=== PATIENT | female | born 1965 | race Caucasian/White ===

== ENCOUNTER → 2019-07-11 15:13 | Outpatient (BNVA) | payer MEDICAID, SELFPAY | PROVIDERS: Family Provider Nurse Practitioner Family; PCP Nurse Practitioner Family; Visit Provider Otolaryngology | DX: H60.501 Unspecified acute noninfective otitis externa, right ear (principal); H90.11 Conductive hearing loss, unilateral, right ear, with unrestricted hearing on the contralateral side; M27.0 Developmental disorders of jaws; K13.70 Unspecified lesions of oral mucosa | CPT/HCPCS: 99213; 99214 ==

== ENCOUNTER → 2019-10-21 14:00 | Outpatient (BNVA) | payer MEDICAID, SELFPAY | PROVIDERS: Family Provider Nurse Practitioner Family; PCP Nurse Practitioner Family; Visit Provider Nurse Practitioner Family | DX: E55.9 Vitamin D deficiency, unspecified (principal); R53.82 Chronic fatigue, unspecified; M62.830 Muscle spasm of back | CPT/HCPCS: 80053; 82306; 82728; 83540; 83550; 84439; 84443; 85025 ==

== ENCOUNTER → 2019-11-11 14:56 | Outpatient (BNVA) | payer MEDICAID, SELFPAY | PROVIDERS: Family Provider Nurse Practitioner Family; PCP Nurse Practitioner Family; Visit Provider Nurse Practitioner Family | DX: R10.9 Unspecified abdominal pain (principal); Z68.39 Body mass index [BMI] 39.0-39.9, adult | CPT/HCPCS: 74018; 81000; 82150; 83690 ==

== ENCOUNTER 2020-03-18 13:35 | Emergency (ER) | payer MEDICAID, SELFPAY ==
--- NOTE | 2020-03-18 13:39 | XR_ITS ---
WS: [id number] XR chest 1V portable [id number] REASON FOR EXAM: cp FINDINGS: The heart and mediastinum are within normal limits. Calcified granulomatous disease in both hemithoraces. No active pulmonary parenchymal or pleural disease. The bony thorax is intact. XR/XR chest 1V portable [id number] IMPRESSION: No acute chest abnormality.
--- NOTE | 2020-03-18 13:39 | ECG_ITS ---
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 Measurements Intervals [place] Rate: 101 P: 44 MT: 123 QRS: -23 QRSD: 98 T: 7 QT: 347 QTc: 452 Interpretive Statements SINUS TACHYCARDIA POSSIBLE LEFT ATRIAL ENLARGEMENT [-0.1mV P WAVE IN V1/V2] BORDERLINE LEFT AXIS DEVIATION [QRS AXIS < -20] POSSIBLE LEFT VENTRICULAR HYPERTROPHY [VOLTAGE CRITERIA PLUS LAE OR QRS WIDENING] MINIMAL ST DEPRESSION [0.025+ mV ST DEPRESSION] Compared to ECG 02/10/2019 18:55:43 ST (T wave) deviation now present Sinus rhythm no longer present Electronically Signed On 03-18-2020 21:34:58 CDT by Stevo Hua M.D. [id number] f
[2020-03-18 13:46] VITALS: BP 169/95; PULSE 96; RESP 14; TEMP 36.8; O2SAT 98; BMI 39.6
[2020-03-18 14:33] LABS: Basophils # 0.1 10^3/uL (0.0-0.1); Basophils % 0.9 %; Eosinophils # 0.1 10^3/uL (0.0-0.8); Eosinophils % 1.4 %; Hematocrit 45.2 % (37.0-47.0); Hemoglobin 14.2 g/dL (11.5-15.3); Lymphocytes # 2.3 10^3/uL (0.8-4.8); Lymphocytes % 26.4 %; Mean Corpuscular HGB Conc 31.4 g/dL (30.0-36.0); Mean Corpuscular Hemoglobin 27.5 pg (28.0-34.0); Mean Corpuscular Volume 87.6 fL (81-99); Mean Platelet Volume 10.8 fL (7.4-10.4); Monocytes # 0.7 10^3/uL (0.2-0.9); Monocytes % 7.9 %; Neutrophils # 5.52 10^3/uL (1.8-7.7); Neutrophils % 62.7 %; Nucleated Red Blood Cells % 0 %; Platelet Count 251 10^3/cmm (130-400); Red Blood Count 5.16 10^6/uL (4.1-5.3); Red Cell Distribution Width 13.7 % (12.1-15.1); White Blood Count 8.8 10^3/uL (4.0-10.0)
[2020-03-18 15:02] LABS: Alanine Aminotransferase 22 U/L (0-33); Albumin Level 4.3 g/dL (3.5-5.2); Alkaline Phosphatase 101 IU/L (35-105); Anion Gap 14.2 (5-19); Aspartate Amino Transferase 18 U/L (0-32); Blood Urea Nitrogen 18 mg/dL (6-20); Calcium 9.6 mg/dL (8.5-10.5); Carbon Dioxide 25 mmol/L (22-29); Chloride 107 mmol/L (98-107); Globulin 2.5 g/dL (1.3-4.6); Glomerular Filtration Rate 65.2 mL/min (90-130); Glucose 111 mg/dL (65-115); Osmolality Calculated 297 mOsm/kg (285-295); Potassium 4.2 mmol/L (3.5-5.1); Sodium 142 mmol/L (136-145); Total Bilirubin 0.6 mg/dL (0.15-1.2); Total Protein 6.8 g/dL (6.6-8.7)
[2020-03-18 15:05] LABS: Troponin(5th) Baseline 6 ng/L (0-10)
--- NOTE | 2020-03-18 15:39 | ECG_ITS ---
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 Measurements Intervals [place] Rate: 80 P: 27 NM: 126 QRS: -23 QRSD: 112 T: 11 QT: 374 QTc: 433 Interpretive Statements SINUS RHYTHM WITH SINUS ARRHYTHMIA BORDERLINE LEFT AXIS DEVIATION [QRS AXIS < -20] MODERATE INTRAVENTRICULAR CONDUCTION DELAY [110+ ms QRS DURATION] VOLTAGE CRITERIA FOR LVH [MEETS CRITERIA IN ONE OF: R(aVL), S(V1), R(V5), R(V5/V6)+S(V1)] Compared to ECG 03/18/2020 13:36:48 Intraventricular conduction delay now present Sinus tachycardia no longer present ST (T wave) deviation no longer present Electronically Signed On 03-19-2020 21:41:39 CDT by Stevo Hua M.D. [id number]
--- NOTE | 2020-03-18 16:49 | W.ED.CHESTPA ---
HPI - Chest Pain General: Chief Complaint: Chest Pain Stated Complaint: Chest Pain Time Seen by Provider: 03/18/20 16:42 Source: patient Mode of arrival: ambulatory Limitations: no limitations History of Present Illness: HPI narrative: 55-year-old female who states she has been having chest pain over the last 2 days. She states that her pain is been sharp in nature. Patient seen by PCP today who thought may be muscular but she went to get checked out further. Denies any shortness of breath denies any nausea vomiting. She denies any worsening or improving factors. Patient is resting comfortably here. Associated symptoms: Deny abdominal pain, dyspnea, fever(s), nausea or vomiting Review of Systems Const: Denies: fever(s), chills, body aches or change in appetite Eyes: Denies: blurry vision or eye discomfort ENMT: Denies: throat pain or dental pain Card: Reports: chest pain Resp: Denies: dyspnea GI: Denies: abdominal pain, nausea, vomiting or diarrhea : Denies: dysuria Musc: Denies: neck pain or back pain Skin/Breast: Denies: rash Neuro: Denies: headache(s) Psych: Denies: depression Lauri/Lymph: Denies: easy bruising All/Imm: Denies: urticaria PFSH ED PFSH: Medical History Acute otitis externa of right ear Conductive hearing loss in right ear HTN (hypertension) Prediabetes Rheumatoid arthritis Surgical History H/O hernia repair History of hysterectomy Family History Other Diabetes Heart disease Social History Smoking and tobacco status: former smoker Alcohol intake: never Physical Exam Const: COMMON NORMALS: no acute distress, patient oriented x3 and healthy appearing HENMT: COMMON NORMALS: normocephalic and atraumatic HEAD & SCALP: normocephalic and atraumatic Eye: COMMON NORMALS: Equal, round and reactive pupils present and EOMs intact bilaterally PUPIL: Yes Equal, round and reactive pupils present Neck/C-Spine: COMMON NORMALS: full ROM and supple Chest: COMMONS NORMALS: normal inspection of the chest CHEST: Yes localized rib tenderness with anteroposterior compression Resp: COMMON NORMALS: normal respiratory effort, No retractions, No use of accessory muscles and clear to auscultation bilaterally AUSCULTATION: clear to auscultation bilaterally Cardio: COMMON NORMALS: regular rate, regular rhythm and No murmurs present (Cardio) RATE: regular rate RHYTHM: regular rhythm GI: COMMON NORMALS: Normal to inspection, nondistended, normoactive bowel sounds present, Soft to palpation, non-tender and no masses PALPATION: Yes Soft to palpation Extremity: COMMON NORMALS: normal to inspection and full ROM Neuro: COMMON NORMALS: patient oriented x3, moves all extremities and no focal motor deficits Psych: COMMON NORMALS: mental status grossly normal, Normal thought process present and cooperative THOUGHT PROCESS: Normal thought process present Skin: COMMON NORMALS: no rashes or lesions noted and no wounds GENERAL SKIN EXAM: no rashes or lesions noted Course Vital Signs: Vital signs: Vital Signs Temperature 98.2 F 03/18/20 13:46 Pulse Rate 78 03/18/20 16:57 Respiratory Rate 17 03/18/20 16:57 Blood Pressure 175/115 03/18/20 16:57 Pulse Oximetry 99 03/18/20 16:57 MDM - Chest Pain MDM Narrative: Medical decision making narrative: Patient presents here with chest pain that is atypical in nature. Patient's initial and 2-hour troponins here are negative. Patient's EKG and x-ray are normal as well. She has no signs of pulmonary embolism. Patient is stable for discharge and is to follow-up with PCP in 3 to 5 days return to ER if she has any pain. She understands agrees to plan. Lab Data: Labs: Lab Results 03/18/20 03/18/20 03/18/20 Range/Units 14:26 14:26 14:26 WBC 8.8 (4.0-10.0) 10^3/ uL RBC 5.16 (4.1-5.3) 10^6/u L Hgb 14.2 (11.5-15.3) g/dL Hct 45.2 (37.0-47.0) % MCV 87.6 (81-99) fL MCH 27.5 L (28.0-34.0) pg MCHC 31.4 (30.0-36.0) g/dL RDW 13.7 (12.1-15.1) % Plt Count 251 (130-400) 10^3/c mm MPV 10.8 H (7.4-10.4) fL Neut % (Auto) 62.7 % Lymph % (Auto) 26.4 % [place] % (Auto) 7.9 % Eos % (Auto) 1.4 % Baso % (Auto) 0.9 % Neut # (Auto) 5.52 (1.8-7.7) 10^3/u L Lymph # (Auto) 2.3 (0.8-4.8) 10^3/u L [place] # (Auto) 0.7 (0.2-0.9) 10^3/u L Eos # (Auto) 0.1 (0.0-0.8) 10^3/u L Baso # (Auto) 0.1 (0.0-0.1) 10^3/u L Nucleated RBC % (a uto) 0 % Nucleated RBCs # 0.0 /100WBC Sodium 142 (136-145) mmol/L Potassium 4.2 (3.5-5.1) mmol/L Chloride 107 (98-107) mmol/L Carbon Dioxide 25 (22-29) mmol/L Anion Gap 14.2 (5-19) BUN 18 (6-20) mg/dL Creatinine 0.9 (0.5-0.9) mg/dL GFR Calculation 65.2 L (90-130) mL/min Glucose 111 (65-115) mg/dL Calculated Osmolal ity 297 H (285-295) mOsm/k g Calcium 9.6 (8.5-10.5) mg/dL Total Bilirubin 0.6 (0.15-1.2) mg/dL AST 18 (0-32) U/L ALT 22 (0-33) U/L Alkaline Phosphata se 101 (35-105) IU/L Troponin T Baselin e 6 (0-10) ng/L Troponin T 120 Min [place] Troponin T Total Protein 6.8 (6.6-8.7) g/dL Albumin 4.3 (3.5-5.2) g/dL Globulin 2.5 (1.3-4.6) g/dL 03/18/20 03/18/20 Range/Units 17:04 17:51 WBC (4.0-10.0) 10^3/ uL RBC (4.1-5.3) 10^6/u L Hgb (11.5-15.3) g/dL Hct (37.0-47.0) % MCV (81-99) fL MCH (28.0-34.0) pg MCHC (30.0-36.0) g/dL RDW (12.1-15.1) % Plt Count (130-400) 10^3/c mm MPV (7.4-10.4) fL Neut % (Auto) % Lymph % (Auto) % [place] % (Auto) % Eos % (Auto) % Baso % (Auto) % Neut # (Auto) (1.8-7.7) 10^3/u L Lymph # (Auto) (0.8-4.8) 10^3/u L [place] # (Auto) (0.2-0.9) 10^3/u L Eos # (Auto) (0.0-0.8) 10^3/u L Baso # (Auto) (0.0-0.1) 10^3/u L Nucleated RBC % (a uto) % Nucleated RBCs # /100WBC Sodium (136-145) mmol/L Potassium (3.5-5.1) mmol/L Chloride (98-107) mmol/L Carbon Dioxide (22-29) mmol/L Anion Gap (5-19) BUN (6-20) mg/dL Creatinine (0.5-0.9) mg/dL GFR Calculation (90-130) mL/min Glucose (65-115) mg/dL Calculated Osmolal ity (285-295) mOsm/k g Calcium (8.5-10.5) mg/dL Total Bilirubin (0.15-1.2) mg/dL AST (0-32) U/L ALT (0-33) U/L Alkaline Phosphata se (35-105) IU/L Troponin T Baselin e (0-10) ng/L Troponin T 120 Min [place] Cancelled 6.00 Delta Troponin T Cancelled 0 Total Protein (6.6-8.7) g/dL Albumin (3.5-5.2) g/dL Globulin (1.3-4.6) g/dL Imaging Data^: CXR: Attestation: I personally reviewed and interpreted this imaging study as follows: Radiologist's impression: [address] [place] [address] XRay Report Signed Patient: Jessica Miller Unit #: [id number] : 1965 Age/Sex: 55 / F ADM Date: 03/18/20 Loc: ER Room/Bed: Attending Dr: Ordering Provider/Ordering MD: Yonatan Bui MD Date of Service: 03/18/20 Procedure(s): XR chest 1V portable [id number] Accession Number(s): [id number] Report Number: [id number] WS: [id number] XR chest 1V portable [id number] REASON FOR EXAM: cp FINDINGS: The heart and mediastinum are within normal limits. Calcified granulomatous disease in both hemithoraces. No active pulmonary parenchymal or pleural disease. The bony thorax is intact. XR/XR chest 1V portable [id number] IMPRESSION: No acute chest abnormality. EKG Data^: EKG 1: Attestation: I personally reviewed and interpreted this EKG as follows: EKG interpretation date: 03/18/20 EKG interpretation time: 13:36 Interpretation: sinus tach hr [address] or t wave abnormalities qrs 98 qtc 405 Discharge Plan Discharge Patient Disposition: Home Clinical Impression: Atypical chest pain Condition: Stable Prescriptions: No Action Excedrin Migraine 250-250-65 mg Tablet 1 tab PO Q6H PRN (Reason: Migraine Headache) RF: 0 Discharge Orders: Discharge Order (Routine); Ordered 03/18/20 Ordered By: Yonatan Bui Referrals: Marquita Bush NP [Primary Care Provider] - Discharge Diet: Advance as tolerated Discharge Activity: Resume usual activity Patient Instructions: Chest Pain (ED) Coding Level of Care Code ED Security Attendant for Chg Ale
[2020-03-18 16:57] VITALS: BP 175/115; PULSE 78; RESP 17; O2SAT 99
[2020-03-18 18:17] LABS: Troponin 5 2HR Delta 0 ABS# (0-10)
[2020-03-18 19:10] VITALS: PULSE 78; RESP 16; O2SAT 97
== END 2020-03-18 19:11 | disposition home or self-care (01) ==
PROVIDERS: Emergency Provider Emergency Medicine; PCP Nurse Practitioner Family
DX: R07.89 Other chest pain (principal); I10 Essential (primary) hypertension; Z87.891 Personal history of nicotine dependence
CPT/HCPCS: 12345; 36415; 71045; 80053; 84484; 85025; 93005; 99281; 99283

== ENCOUNTER 2020-11-16 11:15 | Emergency (ER) | payer MEDICAID, SELFPAY ==
[2020-11-16 11:34] VITALS: BP 163/91; PULSE 81; RESP 18; TEMP 36.8; O2SAT 97; BMI 40.0
--- NOTE | 2020-11-16 11:45 | ECG_ITS ---
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 Measurements Intervals [place] Rate: 77 P: 36 NM: 119 QRS: -14 QRSD: 105 T: 30 QT: 373 QTc: 423 Interpretive Statements SINUS RHYTHM WITH SHORT NM INTERVAL POSSIBLE LEFT VENTRICULAR HYPERTROPHY [VOLTAGE CRITERIA PLUS LAE OR QRS WIDENING] Compared to ECG 03/18/2020 15:58:21 Short NM interval now present Sinus arrhythmia no longer present Intraventricular conduction delay no longer present Electronically Signed On 11-16-2020 12:30:50 CDT by Higinio Keen M.D. [id number] f
--- NOTE | 2020-11-16 12:03 | ED_ITS ---
HPI - Chest Pain General: Chief Complaint: Chest Pain Stated Complaint: CHEST TIGHTNESS Time Seen by Provider: 11/16/20 11:45 History of Present Illness: HPI narrative: This patient is a 55-year-old female who presents to the emergency department complaint of chest pain that is tight in nature. Patient has a long history of chronic neck pain and does have radiculopathy to the left arm. Patient was placed on baclofen by her primary care provider for this chronic neck pain radicular radiculopathy states noticed she has had more chest tightness. Patient does not proceed for describe cardiac symptoms. Patient denies shortness of breath. Patient denies any heavy pressure feeling in the chest. Patient states she does hurt on both sides of her jaw at times but most the time on the right but does have numbness to the left arm related to the neck pain that has been going on for months to years. We will do medical evaluation treat as needed. MD complaint: chest pain Onset (ago): month(s) Timing of current episode: constant Prior episodes: Yes Pain radiation: left arm Severity: moderate Quality: tightness Associated symptoms: Deny abdominal pain, dyspnea, fever(s), nausea, palpitations or vomiting Review of Systems General: Reports: 10 or more systems reviewed and unremarkable except in HPI and below Const: Denies: fever(s), chills, body aches or fatigue Eyes: Denies: change in vision or blurry vision ENMT: Denies: throat pain, hoarseness or mouth pain Card: Reports: chest pain; Denies: palpitations, irregular heart rhythm, edema, swelling of feet/ankles or lightheadedness Resp: Denies: dyspnea, productive cough, non-productive cough, wheezing or pain on inspiration GI: Denies: abdominal pain, nausea or vomiting : Denies: flank pain, difficulty voiding, dysuria, urinary frequency, urinary urgency or urinary hesitancy Musc: Reports: neck pain and extremity pain; Denies: back pain, extremity swelling, joint pain, joint swelling, joint redness, joint warmth or limited range of motion Skin/Breast: Denies: rash, pruritus, erythema or skin tenderness Neuro: Denies: headache(s), numbness in extremities or weakness in extremities Psych: Denies: anxiety or depression PFS ED PFSH: Medical History (Updated 11/16/20 @ 13:54 by Guillaume Holliday MD) Acute otitis externa of right ear Conductive hearing loss in right ear DJD (degenerative joint disease) HTN (hypertension) Prediabetes Rheumatoid arthritis Surgical History H/O hernia repair History of hysterectomy Family History Other CAD (coronary artery disease) Diabetes Family history of premature coronary artery disease Heart disease Hyperlipidemia Hypertension Social History Smoking and tobacco status: former smoker Alcohol intake: never Physical Exam Const: COMMON NORMALS: no acute distress, average body habitus, patient oriented x3, no limitations, healthy appearing, alert and well nourished HENMT: COMMON NORMALS: normocephalic, atraumatic, hearing grossly normal bilaterally, external ears normal, EAC's normal, TM's normal bilaterally, Normal external nose present, Normal nasal mucous membranes and turbinates present, moist oral mucous membranes, oropharynx normal, dentition normal and gingiva normal HEAD & SCALP: normocephalic and atraumatic NOSE: Normal external nose present and Normal nasal mucous membranes and turbinates present EXTERNAL EAR: Yes external ears normal EXTERNAL AUDITORY CANAL: EAC's normal TYMPANIC MEMBRANE: TM's normal bilaterally Neck/C-Spine: COMMON NORMALS: full ROM, no lymphadenopathy, supple, no meningeal signs, no JVD, Thyroid normal and No carotid bruits THYROID: Thyroid normal Chest: COMMONS NORMALS: normal inspection of the chest, normal palpation of entire chest wall, normal inspection of the breasts and normal palpation of the breasts Breast/axilla inspection: Yes normal inspection of the breasts BREAST/AXILLA PALPATION: Yes normal palpation of the breasts Resp: COMMON NORMALS: normal respiratory effort, No retractions, No use of accessory muscles, clear to auscultation bilaterally and percussion normal AUSCULTATION: clear to auscultation bilaterally PERCUSSION: percussion normal Cardio: COMMON NORMALS: no JVD, regular rate, regular rhythm, S1 normal heart sound present, S2 normal heart sound present, No gallops present (Cardio), No clicks present (Cardio), No murmurs present (Cardio), No rub (Cardio) and Peripheral pulses 2+ throughout RATE: regular rate RHYTHM: regular rhythm HEART SOUNDS: S1 normal heart sound present and S2 normal heart sound present PERIPHERAL PULSES: Peripheral pulses 2+ throughout GI: COMMON NORMALS: Normal to inspection, nondistended, normoactive bowel sounds present, Soft to palpation, non-tender, No hepatosplenomegaly present, no masses and no bruits PALPATION: Yes Soft to palpation and Yes No hepatosplenomegaly present : COMMON NORMALS: Yes no CVA tenderness, Yes normal external appearance, Yes normal appearance of the vagina, Yes normal appearance of the cervix, Yes normal bimanual exam, Yes No adnexal tenderness and Yes no masses BLADDER/KIDNEY EXAM: Yes no CVA tenderness BIMANUAL EXAM - VAGINA & UTERUS: Yes normal bimanual exam Back/Pelvis: COMMON NORMALS: no CVA tenderness, thoracic and lumbar spine normal to inspection, no thoracic nor lumbar tenderness, thoraco-lumbar ROM normal and straight leg raise negative bilaterally Extremity: COMMON NORMALS: normal to inspection, full ROM, capillary refill normal, no joint enlargement, no clubbing, cyanosis or edema, no calf tenderness and no pedal edema Neuro: COMMON NORMALS: patient oriented x3 SENSORIUM/ORIENTATION: Yes alert MENINGEAL SIGNS: Yes no meningeal signs Course Reevaluation(s): Reevaluation #1: Negative evaluation in the emergency department. We did discuss at length without her chronic conditions of cervical radiculopathy and chronic neck pain. And medications. Patient is to follow-up with primary care physician discuss her medication options for chronic conditions. Patient is to continue all medications as instructed at this time. Follow-up with her PCP in 2 to 3 days. Return to the emergency department symptoms fail to improve or worsen Time: 13:53 Vital Signs: Vital signs: Vital Signs Temperature 98.2 F 11/16/20 11:34 Pulse Rate 81 11/16/20 11:34 Respiratory Rate 18 11/16/20 11:34 Blood Pressure 163/91 11/16/20 11:34 Pulse Oximetry 97 11/16/20 11:34 MDM - Chest Pain MDM Narrative: Medical decision making narrative: This patient is a 55-year-old female who presents to the emergency department complaint of chest pain that is tight in nature. Patient has a long history of chronic neck pain and does have radiculopathy to the left arm. Patient was placed on baclofen by her primary care provider for this chronic neck pain radicular radiculopathy states noticed she has had more chest tightness. Patient does not proceed for describe cardiac symptoms. Patient denies shortness of breath. Patient denies any heavy pressure feeling in the chest. Patient states she does hurt on both sides of her jaw at times but most the time on the right but does have numbness to the left arm related to the neck pain that has been going on for months to years. Negative evaluation in the emergency department. We did discuss at length without her chronic conditions of cervical radiculopathy and chronic neck pain. And medications. Patient is to follow-up with primary care physician discuss her medication options for chronic conditions. Patient is to continue all medications as instructed at this time. Follow-up with her PCP in 2 to 3 days. Return to the emergency department symptoms fail to improve or worsen Medical Records: Attestation: I reviewed the patient's medical records. Lab Data: Attestation: I reviewed the patient's lab results. Labs: Lab Results 11/16/20 11/16/20 11/16/20 Range/Units 12:19 12:19 12:43 PT 13.80 (12.1-14.9) SECO NDS INR 1.03 (0.8-1.2) APTT 28.3 (23.9-36.7) SECO NDS Sodium 141 (136-145) mmol/L Potassium 4.0 (3.5-5.1) mmol/L Chloride 106 (98-107) mmol/L Carbon Dioxide 22 (22-29) mmol/L Anion Gap 17.0 (5-19) BUN 14 (6-20) mg/dL Creatinine 0.8 (0.5-0.9) mg/dL GFR Calculation 74.7 L (90-130) mL/min Glucose 84 (65-115) mg/dL Calculated Osmolal ity 292 (285-295) mOsm/k g Calcium 8.7 (8.5-10.5) mg/dL Total Bilirubin 1.1 (0.15-1.2) mg/dL AST 16 (0-32) U/L ALT 16 (0-33) U/L Alkaline Phosphata se 81 (35-105) IU/L Troponin T Baselin e 6 (0-10) ng/L NT-Pro-B Natriuret Pep 32 (0-125) pg/mL Total Protein 6.7 (6.6-8.7) g/dL Albumin 4.2 (3.5-5.2) g/dL Globulin 2.5 (1.3-4.6) g/dL Urine Color (Yellow) Urine Appearance (CLEAR) Urine pH (5-7) Ur Specific Gravit y (1.005-1.030) Urine Protein (Negative) Urine Glucose (UA) (Normal) Urine Ketones (Negative) Urine Blood (Negative) Urine Nitrate (Negative) Urine Bilirubin (Negative) Urine Urobilinogen (Negative) mg/dL Ur Leukocyte Antonia ase (Negative) 11/16/20 Range/Units 13:01 PT (12.1-14.9) SECO NDS INR (0.8-1.2) APTT (23.9-36.7) SECO NDS Sodium (136-145) mmol/L Potassium (3.5-5.1) mmol/L Chloride (98-107) mmol/L Carbon Dioxide (22-29) mmol/L Anion Gap (5-19) BUN (6-20) mg/dL Creatinine (0.5-0.9) mg/dL GFR Calculation (90-130) mL/min Glucose (65-115) mg/dL Calculated Osmolal ity (285-295) mOsm/k g Calcium (8.5-10.5) mg/dL Total Bilirubin (0.15-1.2) mg/dL AST (0-32) U/L ALT (0-33) U/L Alkaline Phosphata se (35-105) IU/L Troponin T Baselin e (0-10) ng/L NT-Pro-B Natriuret Pep (0-125) pg/mL Total Protein (6.6-8.7) g/dL Albumin (3.5-5.2) g/dL Globulin (1.3-4.6) g/dL Urine Color Yellow (Yellow) Urine Appearance Clear (CLEAR) Urine pH 6.5 (5-7) Ur Specific Gravit y 1.010 (1.005-1.030) Urine Protein Neg (Negative) Urine Glucose (UA) Norm (Normal) Urine Ketones 1+ H (Negative) Urine Blood Neg (Negative) Urine Nitrate Negative (Negative) Urine Bilirubin Neg (Negative) Urine Urobilinogen Norm (Negative) mg/dL Ur Leukocyte Antonia ase Negative (Negative) Imaging Data^: CXR: Attestation: I personally reviewed and interpreted this imaging study as follows: My impression: Negative for acute findings EKG Data^: EKG 1: Attestation: I personally reviewed and interpreted this EKG as follows: EKG interpretation date: 11/16/20 EKG interpretation time: 11:42 Prior EKG tracings: available for review Interpretation: Sinus rhythm with nonspecific EKG changes heart rate 77. No ST elevation or ST abnormalities. EKG 2: Attestation: I personally reviewed and interpreted this EKG as follows: EKG interpretation date: 11/16/20 EKG interpretation time: 13:23 Prior EKG tracings: available for review Interpretation: Sinus rhythm nonspecific EKG changes heart rate 70 Discharge Plan Discharge Patient Disposition: Home Clinical Impression: Cervical radiculopathy, Atypical chest pain, Chronic neck pain Condition: Stable Prescriptions: No Action losartan 50 mg tablet 50 mg PO DAILY 30 Days Qty: 30 RF: 5 carvedilol [Coreg] 6.25 mg tablet 6.25 mg PO BID 30 Days Qty: 60 RF: 5 baclofen 10 mg Tablet 0.5 - 1 mg PO BID PRN (Reason: unknown) RF: 0 furosemide 20 mg Tablet 20 mg PO DAILY RF: 0 Vitamin D3 1 tab PO DAILY RF: 0 biotin 1 tab PO DAILY RF: 0 dicyclomine 10 mg Capsule 10 mg PO TID RF: 0 Excedrin Migraine 250-250-65 mg Tablet 1 tab PO Q6H PRN (Reason: Migraine Headache) RF: 0 Discharge Orders: Discharge ED (Routine); Ordered 11/16/20 Ordered By: Guillaume Holliday Referrals: Gregg Sullivan, STOREHOUSE CLERK [Primary Care Provider] - Discharge Diet: Advance as tolerated Discharge Activity: Increase activity as tolerated Patient Instructions: Opioid Safety Activity Restrictions/Additional Instructions: Patient is to follow-up with primary care physician discuss her medication options for chronic conditions. Patient is to continue all medications as instructed at this time. Follow-up with her PCP in 2 to 3 days. Return to the emergency department symptoms fail to improve or worsen Coding Level of Care Code ED Automobile Service Station Manager for Chg Fwd Exam Comprehensive
[2020-11-16 12:30] VITALS: BP 170/87; PULSE 73; RESP 18; O2SAT 98
[2020-11-16] MEDS: aspirin 81 mg Chew Tablet 324 MG PO (12:30)
[2020-11-16 12:56] LABS: Alanine Aminotransferase 16 U/L (0-33); Albumin Level 4.2 g/dL (3.5-5.2); Alkaline Phosphatase 81 IU/L (35-105); Aspartate Amino Transferase 16 U/L (0-32); Blood Urea Nitrogen 14 mg/dL (6-20); Calcium 8.7 mg/dL (8.5-10.5); Carbon Dioxide 22 mmol/L (22-29); Chloride 106 mmol/L (98-107); Globulin 2.5 g/dL (1.3-4.6); Glomerular Filtration Rate 74.7 mL/min (90-130); Glucose 84 mg/dL (65-115); NT Pro B Type Natriuretic Pept 32 pg/mL (0-125); Osmolality Calculated 292 mOsm/kg (285-295); Sodium 141 mmol/L (136-145); Total Bilirubin 1.1 mg/dL (0.15-1.2); Total Protein 6.7 g/dL (6.6-8.7)
[2020-11-16 12:58] LABS: Troponin(5th) Baseline 6 ng/L (0-10)
[2020-11-16 13:00] VITALS: BP 164/80; PULSE 77; RESP 18; O2SAT 97
[2020-11-16 13:00] LABS: INR 1.03 (0.8-1.2)
[2020-11-16 13:01] LABS: Partial Thromboplastin Time 28.3 SECONDS (23.9-36.7)
[2020-11-16 13:15] LABS: Add Urine Microscopic? NO; Charge for UA Resulting for Rev
[2020-11-16 13:18] LABS: Bilirubin Urine Neg (Negative); Blood Urine Neg (Negative); Glucose Urine UA Norm (Normal); Ketones Urine 1+ (Negative); Leukocyte Esterase Urine Negative (Negative); Nitrate Urine Negative (Negative); Protein Urine Neg (Negative); Urine Appearance Clear (CLEAR); Urine Color Yellow (Yellow); Urobilinogen Urine Norm (Negative); pH Urine 6.5 (5-7)
--- NOTE | 2020-11-16 13:36 | XR_ITS ---
WS: [id number] PORTABLE CHEST HISTORY: Chest pain COMPARISON: 03/18/2020 Lungs are clear and well expanded. No pleural effusion or pneumothorax. Cardiac size: Normal. Mediastinum/Aorta: Normal mediastinum. No osseous abnormality seen. XR/XR chest 1V portable [id number] IMPRESSION: Unremarkable portable chest.
--- NOTE | 2020-11-16 13:45 | ECG_ITS ---
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 Measurements Intervals [place] Rate: 70 P: 37 IL: 131 QRS: -16 QRSD: 104 T: 29 QT: 392 QTc: 423 Interpretive Statements SINUS RHYTHM POSSIBLE LEFT VENTRICULAR HYPERTROPHY [VOLTAGE CRITERIA PLUS LAE OR QRS WIDENING] Compared to ECG 11/16/2020 11:42:20 Short [place] interval no longer present Electronically Signed On 11-16-2020 19:10:05 CDT by Higinio Keen M.D. [email or web address] Medi[facility]lect [id number]
[2020-11-16 14:00] VITALS: BP 186/87; PULSE 74; O2SAT 97
[2020-11-16 14:17] VITALS: BP 166/81; PULSE 73; RESP 20; O2SAT 99
== END 2020-11-16 14:15 | disposition home or self-care (01) ==
PROVIDERS: Emergency Provider Emergency Medicine; PCP Nurse Practitioner
DX: R07.89 Other chest pain (principal); G89.29 Other chronic pain; M54.2 Cervicalgia; M54.12 Radiculopathy, cervical region; I10 Essential (primary) hypertension; Z87.891 Personal history of nicotine dependence
CPT/HCPCS: 36415; 71045; 80053; 81003; 83880; 84484; 85610; 85730; 93005; 99283

== ENCOUNTER 2020-12-11 06:00 | Outpatient (RCR) | payer SELFPAY | END 2021-01-09 23:59 | disposition home or self-care (01) | LOC: GPT 06:00 | PROVIDERS: PCP Nurse Practitioner; Referring Provider Nurse Practitioner; Visit Provider Nurse Practitioner | DX: M62.830 Muscle spasm of back (principal) | CPT/HCPCS: 97032; 97110; 97112; 97140; 97161; 97530 ==

== ENCOUNTER 2021-01-10 06:00 | Outpatient (RCR) | payer MEDICAID, SELFPAY | END 2021-02-09 23:59 | disposition home or self-care (01) | LOC: GPT 06:00 | PROVIDERS: PCP Nurse Practitioner; Referring Provider Nurse Practitioner; Visit Provider Nurse Practitioner | DX: M62.830 Muscle spasm of back (principal) | CPT/HCPCS: 97032; 97110; 97164; 97530 ==

== ENCOUNTER 2021-09-10 12:18 | Outpatient (CLI) | payer MEDICAID, SELFPAY ==
--- NOTE | 2021-09-10 12:30 | US_ITS ---
WS: [id number] RIGHT UPPER QUADRANT ULTRASOUND HISTORY: R10.10 - Upper abdominal pain, unspecified COMPARISON: None available. Liver: 15.8 cm in length. Liver is normal size. Mild coarsened echotexture. No mass or bile duct dila tation. Patent portal vein. No waveform obtained. Portal Vein: Patent. No waveform obtained. Gallbladder: Normally distended gallbladder with numerous stones. There is an additional soft tissue mass which is not calcified with no shadowing. This separate intraluminal mass measures 2.5 cm transv ersely. CBD: 0.5 cm Pancreas: Normal size and echogenicity. Right kidney: 9.7 cm in length. Normal size and echogenicity. No hydronephrosis or mass. Aorta and IVC: Unremarkable abdominal aorta and IVC. No ascites. US/US gall bladder [id number] IMPRESSION: 1. Cholelithiasis without acute cholecystitis or bile duct dilatation. 2. Within the gallbladder lumen is a soft tissue mass which is not calcified. No increased vascularity. Gallbladder neoplasm is not excluded. Tumefactive zina nd sludge within the gallbladder should also be considered. Due to the large st ones and the soft tissue mass recommend evaluation by surgery for possible chol ecystectomy. 3. Normal size liver with hepatic steatosis.
== END 2021-09-10 12:19 | disposition home or self-care (01) ==
PROVIDERS: PCP Nurse Practitioner; Visit Provider Internal Medicine
DX: K80.20 Calculus of gallbladder without cholecystitis without obstruction (principal); K82.8 Other specified diseases of gallbladder; K76.0 Fatty (change of) liver, not elsewhere classified
CPT/HCPCS: 76705

== ENCOUNTER 2021-10-09 11:14 | Observation (INO) | payer MEDICAID, SELFPAY ==
[2021-10-09] VITALS (9 sets, daily range): BP systolic 134–192; BP diastolic 84–125; PULSE 62–91; RESP 16–20; TEMP 36.1–36.8; O2SAT 97–100; BMI 36.2
--- NOTE | 2021-10-09 11:30 | CTR_ITS ---
PROCEDURE INFORMATION: Exam: CT Head Without Contrast Exam date and time: 10/09/2021 1:09 PM Age: 56 years old Clinical indication: Pain; Headache not specified TECHNIQUE: Imaging protocol: Computed tomography of the head without contrast. Radiation optimization: All CT scans at this facility use at least one of these dose optimization techniques: automated exposure control; mA and/or kV adjustment per patient size (includes targeted exams where dose is matched to clinical indication); or iterative reconstruction. COMPARISON: No relevant prior studies available. RADIATION DOSE METRICS: Total DLP (mGy-cm): 785.29 FINDINGS: Brain: No intracranial hemorrhage, edema or other acute abnormalities are seen in the brain. There is moderate chronic atrophy with prominence of the ventricles and sulci. Cerebral ventricles: See Brain finding. Paranasal sinuses: Visualized sinuses are unremarkable. No fluid levels. Mastoid air cells: Visualized mastoid air cells are well aerated. Bones/joints: Unremarkable. No acute fracture. Soft tissues: Unremarkable. CT/CT head wo con* [id number] IMPRESSION: 1. No acute intracranial abnormality. 2. Moderate generalized chronic atrophy.
--- NOTE | 2021-10-09 11:30 | CTR_ITS ---
PROCEDURE INFORMATION: Exam: CT Angiography Head With Contrast, Arteriography Exam date and time: 10/09/2021 1:13 PM Age: 56 years old Clinical indication: Speech disturbance; Slurred speech; Additional info: Facial droop and numbness TECHNIQUE: Imaging protocol: Computed tomography angiography of the head with contrast. Exam focused on the arteries. 3D rendering (Not supervised by radiologist): MIP and/or 3D reconstructed images were created by the technologist. Radiation optimization: All CT scans at this facility use at least one of these dose optimization techniques: automated exposure control; mA and/or kV adjustment per patient size (includes targeted exams where dose is matched to clinical indication); or iterative reconstruction. Contrast material: OMNIPAQUE 350; Contrast volume: 95 ml; Contrast route: INTRAVENOUS (IV); COMPARISON: CT head wo con* [id number] 10/09/2021 1:09 PM RADIATION DOSE METRICS: Total DLP (mGy-cm): FINDINGS: ANTERIOR CIRCULATION: Right internal carotid artery: Unremarkable. Intracranial segment is patent with no significant stenosis. No aneurysm. Right middle cerebral artery: Unremarkable. No occlusion or significant stenosis. No aneurysm. Right anterior cerebral artery: Unremarkable. No occlusion or significant stenosis. No aneurysm. Left internal carotid artery: Unremarkable. Intracranial segment is patent with no significant stenosis. No aneurysm. Left middle cerebral artery: Unremarkable. No occlusion or significant stenosis. No aneurysm. Left anterior cerebral artery: Unremarkable. No occlusion or significant stenosis. No aneurysm. POSTERIOR CIRCULATION: Right vertebral artery: Unremarkable. No occlusion or significant stenosis. No aneurysm. Left vertebral artery: Unremarkable. No occlusion or significant stenosis. No aneurysm. Basilar artery: Unremarkable. No occlusion or significant stenosis. No aneurysm. Right posterior cerebral artery: Unremarkable. No occlusion or significant stenosis. No aneurysm. Left posterior cerebral artery: Unremarkable. No occlusion or significant stenosis. No aneurysm. Brain: No definite mass, mass effect, or midline shift. Cerebral ventricles: No ventriculomegaly. Bones/joints: Unremarkable. No acute fracture. Soft tissues: Unremarkable. PROCEDURE INFORMATION: Exam: CT Angiography Neck With Contrast Exam date and time: 10/09/2021 1:13 PM Age: 56 years old Clinical indication: Speech disturbance; Slurred speech; Additional info: Facial droop and numbness TECHNIQUE: Imaging protocol: Computed tomography angiography of the neck with contrast. 3D rendering (Not supervised by radiologist): MIP and/or 3D reconstructed images were created by the technologist. Radiation optimization: All CT scans at this facility use at least one of these dose optimization techniques: automated exposure control; mA and/or kV adjustment per patient size (includes targeted exams where dose is matched to clinical indication); or iterative reconstruction. Contrast material: OMNIPAQUE 350; Contrast volume: 95 ml; Contrast route: INTRAVENOUS (IV); COMPARISON: CT head wo con* [id number] 10/09/2021 1:09 PM RADIATION DOSE METRICS: Total DLP (mGy-cm): FINDINGS: Right common carotid artery: No stenosis. No dissection or occlusion. Right internal carotid artery: No stenosis of the extracranial segment. No dissection or occlusion. Right external carotid artery: No occlusion or stenosis of the origin. Left common carotid artery: No stenosis. No dissection or occlusion. Left internal carotid artery: No stenosis of the extracranial segment. No dissection or occlusion. Left external carotid artery: No occlusion or stenosis of the origin. Right vertebral artery: No stenosis. No dissection or occlusion. Left vertebral artery: No stenosis. No dissection or occlusion. Thyroid: There is a 1 cm well-defined round low-density nodule with no suspicious features in the right thyroid lobe. No follow-up is needed. Soft tissues: Normal. No significant soft tissue swelling. Bones/joints: No acute fracture. Chronic degenerative changes are present in the spine. CT/CT angio headneck* [id number] IMPRESSION: No large vessel stenosis or occlusion. IMPRESSION: No no occlusion or significant stenosis in the neck. COMMENTS: Consistent with the [place] [employer]'s Incidental Findings Committee white paper (J Am Simon Radiol 2015): In patients aged 35 years and older with an incidental thyroid nodule equal to or greater than 1.[address], MRI or extrathyroidal US, further evaluation with dedicated thyroid US is recommended for patients with normal life expectancy and without comorbidities. For smaller nodules without suspicious features, no further evaluation or follow up is recommended. REFERENCES: NASCET CRITERIA. The degree of internal carotid artery stenosis is based on NASCET criteria. Normal is no stenosis. Mild is less than 50% stenosis. Moderate is 50-69% stenosis. Severe is 70% to 99% stenosis. Total occlusion is no detectable patent lumen.
--- NOTE | 2021-10-09 11:41 | XRR_ITS ---
PROCEDURE INFORMATION: Exam: XR Chest Exam date and time: 10/09/2021 12:10 PM Age: 56 years old Clinical indication: Pain; Chest pressure; Additional info: Chest pain TECHNIQUE: Imaging protocol: XR of the chest. Views: 1 view. COMPARISON: CR XR chest 1V portable [id number] 11/16/2020 1:34 PM FINDINGS: Lungs: Unremarkable. No consolidation. Pleural spaces: Unremarkable. No pleural effusion. No pneumothorax. Heart/Mediastinum: Unremarkable. No cardiomegaly. Bones/joints: Unremarkable. XR/XR chest 1V portable [id number] IMPRESSION: No acute findings.
--- NOTE | 2021-10-09 11:41 | ECG_ITS ---
[facility] Test Date: 2021-10-09 Pat Name: Jessica Miller Department: Room: Gender: Female Research Development Director: : 1965 Requested By: Иван Harrison Order Number: [id number] Gwen MD: Rodney Aldana M.D. Measurements Intervals [place] Rate: 77 P: 45 ND: 128 QRS: -18 QRSD: 105 T: 37 QT: 363 QTc: 413 Interpretive Statements SINUS RHYTHM WITH SINUS ARRHYTHMIA MINIMAL VOLTAGE CRITERIA FOR LVH, CONSIDER NORMAL VARIANT [MEETS CRITERIA IN ONE OF: R(aVL), S(V1), R(V5), R(V5/V6)+S(V1)] Compared to ECG 11/16/2020 13:23:45 No significant changes Electronically Signed On 10-10-2021 8:12:55 CDT by Rodney Aldana M.D. [email or web address]
--- NOTE | 2021-10-09 11:43 | W.ED.GENADLT ---
HPI - General Adult General: Chief complaint: Dizziness Stated complaint: Facial droop, numb on left side of body Time Seen by Provider: 10/09/21 11:29 History of Present Illness: Patient is a 56-year-old female with a history of prior hernia repair, prediabetes, hypertension who presents the emergency room with multiple complaints including sharp chest pain, transient right-sided facial droop and left glute/foot numbness, and headache. Patient tells me that for last 3 to 4 days, she has had intermittent sharp chest pain. Chest pains are worse with exertion not pleuritic in nature and does not radiate towards the back. Patient has not had any recent ablation, prior history of VTE, or recent surgery. He tells me yesterday, she had a mild headache while visiting her friend she was noted to have right-sided facial droop. Patient did not know how long the episode of right-sided facial pain lasted for. However this morning, when she woke up and looked at the mirror, patient noted the 5 right-sided facial droop at 7 AM this morning. Shortly around 11 AM, the right sided facial droop resolved. In addition while patient was driving the car, for 10 minutes, patient noted left Refugio and left foot numbness. Patient denies any radiating numbness or paresthesia or pain on the left leg or complaints of back pain. Patient denies any focal weakness in the arms or legs, diplopia, slurring of speech, dysarthria, trouble with language comprehension/speaking at any point. Patient denies any prior history of strokes. Patient denies any gait instability at any point time. Patient denies any shortness of breath, palpitation, abdominal complaints nausea/vomiting, diarrhea melena or hematochezia. Patient denies any decreased p.o. intake or urinary complaints. Patient tells me that during these episodes of facial droop and left-sided numbness, patient had lightheadedness that is positional and worse with standing. She is currently chest pain free. Onset: 3-4 days ao of chest pain, 2 day of transient R sided facial droop, 2 days of headache, 10 minutes of L hip and foot numbness Duration:ongoing Location:home Severity:moderate Associated symptoms: Reports chest pain; Deny dyspnea, nausea, rash, palpitations or vomiting Review of Systems Const: Denies: fever(s) or chills Eyes: Denies: change in vision ENMT: Denies: mouth pain Card: Reports: chest pain; Denies: palpitations Resp: Denies: dyspnea or non-productive cough GI: Denies: abdominal pain, nausea, vomiting or diarrhea : Denies: dysuria Musc: Denies: extremity pain Skin/Breast: Denies: rash or new lesions Neuro: Reports: other (+transient R facial droop, transient L buttock/foot numbness); Denies: weakness in extremities Psych: Reports: other (Normal mood) Lauri/Lymph: Denies: easy bruising PFS ED PFSH: Medical History (Updated 10/11/21 @ 00:01 by ) Acute otitis externa of right ear Cholelithiasis Conductive hearing loss in right ear DJD (degenerative joint disease) HTN (hypertension) Hypertensive urgency Obesity Prediabetes Rheumatoid arthritis TIA (transient ischemic attack) Surgical History H/O hernia repair History of hysterectomy Family History Other CAD (coronary artery disease) Diabetes Family history of premature coronary artery disease Heart disease Hyperlipidemia Hypertension Social History Smoking and tobacco status: former smoker Alcohol intake: never Substance/Drug Use: never Current occupational status: disabled Physical Exam Const: COMMON NORMALS: alert HENMT: COMMON NORMALS: atraumatic HEAD & SCALP: atraumatic MOUTH: moist mucous membranes not abnormal Eye: COMMON NORMALS: EOMs intact bilaterally and conjunctivae normal CONJUNCTIVA: Yes conjunctivae normal Neck/C-Spine: COMMON NORMALS: full ROM and supple Resp: COMMON NORMALS: normal respiratory effort and clear to auscultation bilaterally AUSCULTATION: clear to auscultation bilaterally Cardio: COMMON NORMALS: regular rate RATE: regular rate GI: COMMON NORMALS: Soft to palpation and non-tender PALPATION: Yes Soft to palpation Extremity: COMMON NORMALS: full ROM Neuro: SENSORIUM/ORIENTATION: Yes alert MOTOR EXAM: No Abnormal motor strength present and Other motor observations present (no focal motor deficits) OTHER: Mental status? Awake, alert, and oriented to self, year, month, location, and situation.? Following simple axial and appendicular commands.? Has appropriate fund of knowledge, comprehension, and insight.? Able to recall and understands pertinent aspects of medical history and current treatment status.? ? Language? Speech is fluent without word-finding difficulties.? 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 ? Cranial nerves? 2,3,4,6: PERRL, EOMI with no nystagmus. 5: Intact sensation to light touch, symmetric? 7: Smile symmetrical, no facial droop.? 8: Hearing grossly intact.? 9,10: Normal palate movement.? 11: Normal strength in trapezius bilaterally 12: Tongue protrudes midline.? ? Motor examination? Normal bulk & tone. Strength as follows (R/L): Delts (5/5), Biceps (5/5), Triceps (5/5), Wrist ext (5/5), hip flexors (5/5), plantarflexors (5/5), dorsiflexors (5/5). ? Sensation? Light Touch: Grossly intact and equal in upper and lower extremities bilaterally? Romberg: Negative.? Distal joint position sense intact ? Coordination? Nufpmv-nb-zamh-finger movements intact without dysmetria or past-pointing.? Rapid fingertaps: preserved amplitude without decriment.? No tremor, myoclonus or truncal ataxia.? ? Gait/stance? Steady, normal narrow base gait with appropriate arm swing and turning.? Tandem gait without hesitation or loss of balance. Psych: COMMON NORMALS: speech normal SPEECH: Yes normal speech MOOD & AFFECT: Yes euthymic mood Course Vital Signs: Vital signs: Vital Signs Temperature 98.2 F 10/10/21 07:24 Pulse Rate 65 10/10/21 07:24 Respiratory Rate 17 10/10/21 07:24 Blood Pressure 178/100 10/10/21 07:24 Pulse Oximetry 99 10/10/21 07:24 [facility] - General Adult Medical Decision Making 56-year-old female with a history of hypertension, prediabetes presenting to the emergency room with multiple complaints including sharp chest pain, headache, right-sided facial numbness that resolved, and left hip and foot numbness have resolved. On physical exam, patient is hemodynamically stable. Neuro exam is intact no appreciable facial droop or unilateral numbness. CT head negative for any acute finding. CTA negative for any dissection or large vessel occlusion. Patient is noted to have a blood pressure 195/125. Patient received amlodipine. It is unclear whether patient has been having TIA symptoms. Patient will be admitted to the hospital for further work-up. Disposition: admission Lab Data : 10/10/21 03:46 10/10/21 03:[address] 10/09/21 11:30 IMPRESSION: 1. No acute intracranial abnormality. 2. Moderate generalized chronic atrophy. Head/Neck CTA 10/09/21 11:30 IMPRESSION: No large vessel stenosis or occlusion. IMPRESSION: No no occlusion or significant stenosis in the neck. COMMENTS: Consistent with the [employer]'s Incidental Findings Committee white paper (J Am Simon Radiol 2015): In patients aged 35 years and older with an incidental thyroid nodule equal to or greater than 1.[address], MRI or extrathyroidal US, further evaluation with dedicated thyroid US is recommended for patients with normal life expectancy and without comorbidities. For smaller nodules without suspicious features, no further evaluation or follow up is recommended. REFERENCES: NASCET CRITERIA. The degree of internal carotid artery stenosis is based on NASCET criteria. Normal is no stenosis. Mild is less than 50% stenosis. Moderate is 50-69% stenosis. Severe is 70% to 99% stenosis. Total occlusion is no detectable patent lumen. Chest X-Ray 10/09/21 11:41 IMPRESSION: No acute findings. Laboratory Results WBC 6.2 10^3/uL (4.0-10.0) 10/09/21 11:55 RBC 4.89 10^6/uL (4.1-5.3) 10/09/21 11:55 Hgb 13.7 g/dL (11.5-15.3) 10/09/21 11:55 Hct 42.4 % (37.0-47.0) 10/09/21 11:55 MCV 86.7 fl (81-99) 10/09/21 11:55 MCH 28.0 pg (28.0-34.0) 10/09/21 11:55 MCHC 32.3 g/dL (30.0-36.0) 10/09/21 11:55 RDW 13.9 % (12.1-15.1) 10/09/21 11:55 Plt Count 205 10^3/cmm (130-400) 10/09/21 11:55 MPV 11.0 fL (7.4-10.4) H 10/09/21 11:55 Neut % (Auto) 62.1 % 10/09/21 11:55 Lymph % (Auto) 28.4 % 10/09/21 11:55 [place] % (Auto) 6.0 % 10/09/21 11:55 Eos % (Auto) 1.5 % 10/09/21 11:55 Baso % (Auto) 1.0 % 10/09/21 11:55 Neut # (Auto) 3.84 10^3/uL (1.8-7.7) 10/09/21 11:55 Lymph # (Auto) 1.8 10^3/uL (0.8-4.8) 10/09/21 11:55 [place] # (Auto) 0.4 10^3/uL (0.2-0.9) 10/09/21 11:55 Eos # (Auto) 0.1 10^3/uL (0.0-0.8) 10/09/21 11:55 Baso # (Auto) 0.1 10^3/uL (0.0-0.1) 10/09/21 11:55 Nucleated RBC % (auto) 0 % 10/09/21 11:55 Nucleated RBCs # 0.0 /100WBC 10/09/21 11:55 D-Dimer 0.31 ug/mIFEU (0-0.59) 10/09/21 12:40 Sodium 142 mmol/L (136-145) 10/09/21 11:55 Potassium 3.7 mmol/L (3.5-5.1) 10/09/21 11:55 Chloride 108 mmol/L (98-107) H 10/09/21 11:55 Carbon Dioxide 22 mmol/L (22-29) 10/09/21 11:55 Anion Gap 15.7 (5-19) 10/09/21 11:55 BUN 9 mg/dL (6-20) 10/09/21 11:55 Creatinine 0.7 mg/dL (0.5-0.9) 10/09/21 11:55 GFR Calculation 86.9 mL/min (90-130) L 10/09/21 11:55 Glucose 122 mg/dL (65-115) H 10/09/21 11:55 Calculated Osmolality 294 mOsm/kg (285-295) 10/09/21 11:55 Calcium 8.5 mg/dL (8.5-10.5) 10/09/21 11:55 Total Bilirubin 0.7 mg/dL (0.15-1.2) 10/09/21 11:55 Direct Bilirubin 0.20 mg/dL (0.00-0.30) 10/09/21 11:55 AST 18 U/L (0-32) 10/09/21 11:55 ALT 20 U/L (0-33) 10/09/21 11:55 Alkaline Phosphatase 85 IU/L (35-105) 10/09/21 11:55 Troponin T Baseline 8 ng/L (0-10) 10/09/21 11:55 Troponin T 120 Minute 6.00 ng/L (0-10) 10/09/21 13:25 Delta Troponin T -2.0 ABS# (0-10) L 10/09/21 13:25 Total Protein 6.3 g/dL (6.6-8.7) L 10/09/21 11:55 Albumin 4.1 g/dL (3.5-5.2) 10/09/21 11:55 Globulin 2.2 g/dL (1.3-4.6) 10/09/21 11:55 Imaging Data Other Imaging: Radiologist's impression: [address] [address] XRay Report Signed Patient: Jessica Miller Unit #: [id number] : 1965 Age/Sex: 56 / F ADM Date: 10/09/21 Loc: ER Room/Bed: Attending Dr: Ordering Provider/Ordering MD: Иван Harrison MD Date of Service: 10/09/21 Procedure(s): XR chest 1V portable [id number] Accession Number(s): [id number] Report Number: [id number] PROCEDURE INFORMATION: Exam: XR Chest Exam date and time: 10/09/2021 12:10 PM Age: 56 years old Clinical indication: Pain; Chest pressure; Additional info: Chest pain TECHNIQUE: Imaging protocol: XR of the chest. Views: 1 view. COMPARISON: CR XR chest 1V portable [id number] 11/16/2020 1:34 PM FINDINGS: Lungs: Unremarkable. No consolidation. Pleural spaces: Unremarkable. No pleural effusion. No pneumothorax. Heart/Mediastinum: Unremarkable. No cardiomegaly. Bones/joints: Unremarkable. XR/XR chest 1V portable [id number] IMPRESSION: No acute findings. ? Dictated By: Olaf Gonsales Signed By: Olaf Gonsales Signed Date/Time: 10/09/21 1317 DD/ [address] [address] [address] Scan Report Signed Patient: Jessica Miller Unit #: [id number] : 1965 Age/Sex: 56 / F ADM Date: 10/09/21 Loc: ER Room/Bed: Attending Dr: Ordering Provider/Ordering MD: Иван Harrison MD Date of Service: 10/09/21 Procedure(s): CT angio headneck* [id number] Accession Number(s): [id number] Report Number: [id number] PROCEDURE INFORMATION: Exam: CT Angiography Head With Contrast, Arteriography Exam date and time: 10/09/2021 1:13 PM Age: 56 years old Clinical indication: Speech disturbance; Slurred speech; Additional info: Facial droop and numbness TECHNIQUE: Imaging protocol: Computed tomography angiography of the head with contrast. Exam focused on the arteries. 3D rendering (Not supervised by radiologist): MIP and/or 3D reconstructed images were created by the technologist. Radiation optimization: All CT scans at this facility use at least one of these dose optimization techniques: automated exposure control; mA and/or kV adjustment per patient size (includes targeted exams where dose is matched to clinical indication); or iterative reconstruction. Contrast material: OMNIPAQUE 350; Contrast volume: 95 ml; Contrast route: INTRAVENOUS (IV);? COMPARISON: CT head wo con* [id number] 10/09/2021 1:09 PM RADIATION DOSE METRICS: Total DLP (mGy-cm): FINDINGS: ANTERIOR CIRCULATION: Right internal carotid artery: Unremarkable. Intracranial segment is patent with no significant stenosis. No aneurysm. Right middle cerebral artery: Unremarkable. No occlusion or significant stenosis. No aneurysm.? Right anterior cerebral artery: Unremarkable. No occlusion or significant stenosis. No aneurysm.? Left internal carotid artery: Unremarkable. Intracranial segment is patent with no significant stenosis. No aneurysm. Left middle cerebral artery: Unremarkable. No occlusion or significant stenosis. No aneurysm.? Left anterior cerebral artery: Unremarkable. No occlusion or significant stenosis. No aneurysm.? POSTERIOR CIRCULATION: Right vertebral artery: Unremarkable. No occlusion or significant stenosis. No aneurysm.? Left vertebral artery: Unremarkable. No occlusion or significant stenosis. No aneurysm.? Basilar artery: Unremarkable. No occlusion or significant stenosis. No aneurysm. Right posterior cerebral artery: Unremarkable. No occlusion or significant stenosis. No aneurysm.? Left posterior cerebral artery: Unremarkable. No occlusion or significant stenosis. No aneurysm.? Brain: No definite mass, mass effect, or midline shift. Cerebral ventricles: No ventriculomegaly. Bones/joints: Unremarkable. No acute fracture. Soft tissues: Unremarkable. PROCEDURE INFORMATION: Exam: CT Angiography Neck With Contrast Exam date and time: 10/09/2021 1:13 PM Age: 56 years old Clinical indication: Speech disturbance; Slurred speech; Additional info: Facial droop and numbness TECHNIQUE: Imaging protocol: Computed tomography angiography of the neck with contrast. 3D rendering (Not supervised by radiologist): MIP and/or 3D reconstructed images were created by the technologist. Radiation optimization: All CT scans at this facility use at least one of these dose optimization techniques: automated exposure control; mA and/or kV adjustment per patient size (includes targeted exams where dose is matched to clinical indication); or iterative reconstruction. Contrast material: OMNIPAQUE 350; Contrast volume: 95 ml; Contrast route: INTRAVENOUS (IV);? COMPARISON: CT head wo con* [id number] 10/09/2021 1:09 PM RADIATION DOSE METRICS: Total DLP (mGy-cm): FINDINGS: Right common carotid artery: No stenosis. No dissection or occlusion. Right internal carotid artery: No stenosis of the extracranial segment. No dissection or occlusion. Right external carotid artery: No occlusion or stenosis of the origin.? Left common carotid artery: No stenosis. No dissection or occlusion. Left internal carotid artery: No stenosis of the extracranial segment. No dissection or occlusion. Left external carotid artery: No occlusion or stenosis of the origin.? Right vertebral artery: No stenosis. No dissection or occlusion. Left vertebral artery: No stenosis. No dissection or occlusion. Thyroid: There is a 1 cm well-defined round low-density nodule with no suspicious features in the right thyroid lobe.? No follow-up is needed. Soft tissues: Normal. No significant soft tissue swelling. Bones/joints: No acute fracture. Chronic degenerative changes are present in the spine. CT/CT angio headneck* [id number] IMPRESSION: No large vessel stenosis or occlusion. ? ? IMPRESSION: No no occlusion or significant stenosis in the neck. ? COMMENTS: Consistent with the [employer]'s Incidental Findings Committee white paper (J Am Simon Radiol 2015): In patients aged 35 years and older with an incidental thyroid nodule equal to or greater than 1.[address], MRI or extrathyroidal US, further evaluation with dedicated thyroid US is recommended for patients with normal life expectancy and without comorbidities. For smaller nodules without suspicious features, no further evaluation or follow up is recommended. ? REFERENCES: NASCET CRITERIA. The degree of internal carotid artery stenosis is based on NASCET criteria. Normal is no stenosis. Mild is less than 50% stenosis. Moderate is 50-69% stenosis. Severe is 70% to 99% stenosis. Total occlusion is no detectable patent lumen. ? Dictated By: Olaf Gonsales Signed By: Olaf Gonsales Signed Date/Time: 10/09/21 1340 DD/ [address] [address] [address] Scan Report Signed Patient: Jessica Miller Unit #: [id number] : 1965 Age/Sex: 56 / F ADM Date: 10/09/21 Loc: ER Room/Bed: Attending Dr: Ordering Provider/Ordering MD: Иван Harrison MD Date of Service: 10/09/21 Procedure(s): CT head wo con* [id number] Accession Number(s): [id number] Report Number: [id number] PROCEDURE INFORMATION: Exam: CT Head Without Contrast Exam date and time: 10/09/2021 1:09 PM Age: 56 years old Clinical indication: Pain; Headache not specified TECHNIQUE: Imaging protocol: Computed tomography of the head without contrast. Radiation optimization: All CT scans at this facility use at least one of these dose optimization techniques: automated exposure control; mA and/or kV adjustment per patient size (includes targeted exams where dose is matched to clinical indication); or iterative reconstruction. COMPARISON: No relevant prior studies available. RADIATION DOSE METRICS: Total DLP (mGy-cm): 785.29 FINDINGS: Brain: No intracranial hemorrhage, edema or other acute abnormalities are seen in the brain. There is moderate chronic atrophy with prominence of the ventricles and sulci. Cerebral ventricles: See Brain finding. Paranasal sinuses: Visualized sinuses are unremarkable. No fluid levels. Mastoid air cells: Visualized mastoid air cells are well aerated. Bones/joints: Unremarkable. No acute fracture. Soft tissues: Unremarkable. CT/CT head wo con* [id number] IMPRESSION: 1. No acute intracranial abnormality. 2. Moderate generalized chronic atrophy. ? 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
[2021-10-09 12:10] LABS: Basophils # 0.1 10^3/uL (0.0-0.1); Eosinophils # 0.1 10^3/uL (0.0-0.8); Eosinophils % 1.5 %; Hematocrit 42.4 % (37.0-47.0); Hemoglobin 13.7 g/dL (11.5-15.3); Lymphocytes # 1.8 10^3/uL (0.8-4.8); Lymphocytes % 28.4 %; Mean Corpuscular HGB Conc 32.3 g/dL (30.0-36.0); Mean Corpuscular Volume 86.7 fl (81-99); Monocytes # 0.4 10^3/uL (0.2-0.9); Neutrophils # 3.84 10^3/uL (1.8-7.7); Neutrophils % 62.1 %; Nucleated Red Blood Cells % 0 %; Platelet Count 205 10^3/cmm (130-400); Red Blood Count 4.89 10^6/uL (4.1-5.3); Red Cell Distribution Width 13.9 % (12.1-15.1); White Blood Count 6.2 10^3/uL (4.0-10.0)
[2021-10-09 12:26] LABS: Anion Gap 15.7 (5-19); Blood Urea Nitrogen 9 mg/dL (6-20); Calcium 8.5 mg/dL (8.5-10.5); Carbon Dioxide 22 mmol/L (22-29); Chloride 108 mmol/L (98-107); Glomerular Filtration Rate 86.9 mL/min (90-130); Glucose 122 mg/dL (65-115); Osmolality Calculated 294 mOsm/kg (285-295); Potassium 3.7 mmol/L (3.5-5.1); Sodium 142 mmol/L (136-145)
[2021-10-09 12:28] LABS: Troponin(5th) Baseline 8 ng/L (0-10)
[2021-10-09 13:11] LABS: D Dimer 0.31 ug/mIFEU (0-0.59)
[2021-10-09] MEDS: iohexol 350 mg/mL 100 mL Btl IV (13:11)
[2021-10-09] MEDS: acetaminophen 500 mg Tablet PO (13:38)
[2021-10-09] MEDS: sodium chloride 0.9% 1,000 ML 999 ML IV (13:38)
--- NOTE | 2021-10-09 13:41 | ECG_ITS ---
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 Measurements Intervals [place] Rate: 75 P: 24 RI: 124 QRS: -17 QRSD: 116 T: 29 QT: 378 QTc: 423 Interpretive Statements SINUS RHYTHM WITH SINUS ARRHYTHMIA MODERATE INTRAVENTRICULAR CONDUCTION DELAY [110+ ms QRS DURATION] MODERATE VOLTAGE CRITERIA FOR LVH, CONSIDER NORMAL VARIANT [MEETS CRITERIA IN ONE OF: R(aVL), S(V1), R(V5), R(V5/V6)+S(V1)] Compared to ECG 10/09/2021 11:57:01 Intraventricular conduction delay now present Electronically Signed On 10-10-2021 8:20:57 CDT by Rodney Aldana M.D. [id number]
[2021-10-09] MEDS: metoclopramide 5 mg/mL SDV 2 mL IVP (14:19)
[2021-10-09] MEDS: amlodipine 5 mg Tablet PO (14:19)
[2021-10-09 14:47] LABS: Alanine Aminotransferase 20 U/L (0-33); Albumin Level 4.1 g/dL (3.5-5.2); Alkaline Phosphatase 85 IU/L (35-105); Aspartate Amino Transferase 18 U/L (0-32); Globulin 2.2 g/dL (1.3-4.6); Total Bilirubin 0.7 mg/dL (0.15-1.2); Total Protein 6.3 g/dL (6.6-8.7)
--- NOTE | 2021-10-09 15:02 | PM.HP ---
Providers/Chief Complaint Admitting Physician: Teo Smith Primary Care Provider: RAHEEM Anguiano Chief Complaint: Facial droop, numb on left side of body History of Present Illness Pleasant 56-year-old lady began experiencing headache yesterday morning, then not long after that after meeting up with her friend her friend had noticed that she had had facial droop with nasolabial fold flattening on the right. She had at the time also noticed some word finding difficulty, although she did not think much of it she states had had some milder symptoms of it in the past. This morning she again noticed was having facial droop due to which her [id number] who is a nurse encouraged her to go to be evaluated in ER. In ER facial droop was reported to been between 7-11 AM, then spontaneously resolved. On the way to ER she reports she was having some numbness in the left hand, as well as some numbness in the left buttock, down to left foot. 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 Head CT in ER revealed moderate generalized chronic atrophy, no acute intracranial abnormality. CTA head and neck without large vessel stenosis or occlusion. Noted hypertensive in ER, blood pressure up into 200s systolic, and the 120s diastolic. Her headache has been better, however, with mild residual symptoms. She reports with her headache she also was having some mild tightness in her chest on and off. Not currently. Troponin so far negative. EKG with possible LVH, discussed with her. She states she is supposed to, but has not really been monitoring her blood pressures at home. She had changed her diet and cut out fat from her diet due to gallstones for which she follows with her primary provider, and is trying to lose weight. She states she had previously had prediabetes but has gotten controlled with diet. Had a tick bite 7 months ago, none since. Denies any rash, fevers. Occasional mild chills. Review of Systems Const: Denies: fever(s), chills, body aches or malaise Eyes: Denies: change in vision, eye discomfort or eye redness ENMT: Denies: throat pain, oral sores or ear or mastoid pain Card: Reports: other (minimal chest tightness w episodes); Denies: chest pain, edema, pre-syncope or dyspnea on exertion Resp: Denies: dyspnea, productive cough, change in phlegm color or hemoptysis GI: Reports: nausea (Occ mild nausea w gall stones after several meals); Denies: abdominal pain, vomiting, diarrhea, constipation, hematochezia or melena : Denies: flank pain, urinary frequency or hematuria Musc: Denies: back pain, joint swelling or joint redness Skin/Breast: Denies: rash or new lesions Neuro: Reports: headache(s), numbness in extremities, difficulty communicating thoughts and other (transient facial droop); Denies: weakness in extremities, dizziness, confusion or seizure-like activity Endo: Denies: polyuria or polydipsia Lauri/Lymph: Denies: easy bleeding or tender lymph nodes All/Imm: Denies: urticaria or tongue swelling Medications/Allergies Home Medications Medication Instructions Recorded Confirmed Last Taken Type dicyclomine 10 mg capsule 10 mg PO TID PRN 11/16/20 10/09/21 Unknown History [id number] 250 1 tab PO DAILY PRN 10/09/21 10/09/21 10/08/21 History mg-250 mg-65 mg tablet (Excedrin 1 tab Migraine) losartan 50 mg tablet 50 mg PO DAILY 10/09/21 10/09/21 10/09/21 History Allergies Allergy/AdvReac Type Severity Reaction Status Date / Time lisinopril Allergy Intermediate Rash Verified 10/09/21 11:28 PFSH Acute PFSH: Medical History (Updated 10/09/21 @ 15:12 by Teo Smith MD) Acute otitis externa of right ear Cholelithiasis Conductive hearing loss in right ear DJD (degenerative joint disease) HTN (hypertension) Obesity Prediabetes Rheumatoid arthritis Surgical History H/O hernia repair History of hysterectomy Family History Other CAD (coronary artery disease) Diabetes Family history of premature coronary artery disease Heart disease Hyperlipidemia Hypertension Social History Smoking and tobacco status: former smoker Alcohol intake: never Substance/Drug Use: never Current occupational status: disabled Vitals/I&O/Wt Last Vital Signs Temp 98.3 F 10/09/21 11:20 Pulse 90 10/09/21 13:39 Resp 18 10/09/21 13:39 BP 192/125 10/09/21 13:39 Pulse Ox 98 10/09/21 13:39 10/09/21 10/09/21 10/09/21 06:59 14:59 22:59 Intake Total 1000 / 1000 Balance 1000 / 1000 Weight last 48 hrs Weight 87.09 kg Physical Exam Const: COMMON NORMALS: alert GENERAL APPEARANCE: cooperative ORIENTATION/CONSCIOUSNESS: Yes awake HENMT: COMMON NORMALS: normocephalic, EAC's normal, Normal external nose present and moist oral mucous membranes HEAD & SCALP: normocephalic NOSE: Normal external nose present EXTERNAL AUDITORY CANAL: EAC's normal Neck/C-Spine: COMMON NORMALS: no meningeal signs Chest: CHEST: Yes Symmetrical chest wall rise Resp: COMMON NORMALS: clear to auscultation bilaterally AUSCULTATION: clear to auscultation bilaterally Cardio: COMMON NORMALS: regular rate, regular rhythm and No murmurs present (Cardio) RATE: regular rate RHYTHM: regular rhythm GI: COMMON NORMALS: Normal to inspection, nondistended, normoactive bowel sounds present, Soft to palpation and non-tender PALPATION: Yes Soft to palpation Extremity: COMMON NORMALS: no pedal edema OTHER: Mild posterior L thigh pain on straight leg raise Neuro: COMMON NORMALS: moves all extremities SENSORIUM/ORIENTATION: Yes alert MENINGEAL SIGNS: Yes no meningeal signs COORDINATION/BALANCE: [id number] test normal and [id number]-ip-[id number] test normal SPEECH: speech normal MOTOR EXAM: 5/5 motor strength present throughout and Pronator motor function not present OTHER: Facial droop is pretty much resolved, minimal if any residual. Able to rise right eyebrow/wrinkle forehead. Follows directions well. No issues with tracking. Visual hurst full to confrontation. Psych: COMMON NORMALS: mental status grossly normal Skin: COMMON NORMALS: no wounds RASHES: no rashes Data : 10/09/21 11:55 10/09/21 11:55 A&P Assessment and plan (1) Hypertensive urgency: Very hypertensive, with headache, focal neurologic deficits, blood pressures up into 200s systolic, 120s diastolic. Given dose of amlodipine. Continue losartan. Add hydralazine as needed. Monitor blood pressure in the hospital. Cardiac diet. Status: Acute (2) Facial droop: Transient facial droop. Discussed with her focal neurologic abnormality, concern for TIA given resolution, but cannot exclude entirely small CVA. Discussed additional assessment for additional risk factors beyond the ones that are known, including uncontrolled hypertension, obesity, previously had prediabetes as well. She is trying to lose weight. Will need long-term control of hypertension. Start aspirin, statin, check lipid profile, A1c. TTE Speech eval Consider MRI after discharge. Follow-up with neurology. Left arm numbness more likely related to DJD of neck as she states has had issues with it before. Similarly left buttock numbness, left foot numbness, suspected more related to lumbosacral radiculopathy as she has had sciatic symptoms in the past as well. Less likely Gardner's palsy given exam. Said no fever, rash, no recent tick bites beyond 7 months ago. Status: Acute (3) Leg numbness: Status: Acute (4) Chest tightness: Episodes together with headache, and episodes of facial droop, with poorly controlled hypertension. Discussed also findings of possible LVH on EKG. Assessed by TTE. Troponin EKG series of shortness rest of NSTEMI. She is symptom-free currently. May benefit from nonemergent additional evaluation given risk factors of cardiovascular disease with outpatient stress test for risk stratification. Status: Acute (5) Uncontrolled hypertension: Continue losartan. Add amlodipine. Cardiac diet. Hydralazine as needed for BP over 220/120 or over 190/110 and symptoms. Status: Acute (6) Obesity: She is making a Giurgius for weight loss. Continue to encourage. Follow-up with PCP. Status: Acute (7) Cholelithiasis: Occasional symptoms of mild nausea after multiple meals. She has been cutting out fat from her diet. They have been discussing possible cholecystectomy with her primary provider. Status: Acute (8) DJD (degenerative joint disease): DJD neck, lumbosacral radiculopathy history. Weight loss would also help her with these conditions. Status: Acute Qualifiers: Osteoarthritis location: spine Spinal region: lumbar Spinal osteoarthritis complication: with radiculopathy Qualified Code(s): M47.26 - Other spondylosis with radiculopathy, lumbar region Attestations Medical Necessity Statement*: Place in observation for additional assessment of TIA, hypertensive urgency, poorly controlled hypertension. Coding Level of Care Code Acute Intensive Care Unit Registered Nurse for Chg Fwd Diagnoses Hypertensive urgency I16.0 Facial droop R29.810 Leg numbness R20.0 Chest tightness R07.89 Uncontrolled hypertension I10 Obesity E66.9 Cholelithiasis K80.20 DJD (degenerative joint disease) M47.26 Osteoarthritis location: spine Spinal region: lumbar Spinal osteoarthritis complication: with radiculopathy
[2021-10-09] MEDS: aspirin 81 mg EC Tablet 162 MG PO (16:23)
--- NOTE | 2021-10-09 16:38 | PC.NURSE ---
Patient arrived from ED at 1545. Blood pressure slightly elevated, otherwise vitals stable. NIHSS was 0. Patient oriented to room. Will continue to monitor and give report to night nurse.
[2021-10-09] MEDS: metoprolol tartrate 25 mg Tablet PO (21:03)
[2021-10-09] MEDS: atorvastatin 40 mg Tablet PO (21:03)
[2021-10-10 04:00] VITALS: BP 171/86; PULSE 74; RESP 17; TEMP 36.6; O2SAT 95
[2021-10-10 04:41] VITALS: PULSE 63
[2021-10-10 04:54] LABS: Basophils # 0.1 10^3/uL (0.0-0.1); Eosinophils # 0.2 10^3/uL (0.0-0.8); Eosinophils % 2.8 %; Hematocrit 40.9 % (37.0-47.0); Hemoglobin 12.9 g/dL (11.5-15.3); Lymphocytes # 2.3 10^3/uL (0.8-4.8); Mean Corpuscular HGB Conc 31.5 g/dL (30.0-36.0); Mean Corpuscular Hemoglobin 27.9 pg (28.0-34.0); Mean Corpuscular Volume 88.3 fl (81-99); Mean Platelet Volume 11.2 fL (7.4-10.4); Monocytes # 0.6 10^3/uL (0.2-0.9); Monocytes % 9.5 %; Neutrophils # 2.99 10^3/uL (1.8-7.7); Neutrophils % 49.2 %; Nucleated Red Blood Cells % 0 %; Platelet Count 217 10^3/cmm (130-400); Red Blood Count 4.63 10^6/uL (4.1-5.3); Red Cell Distribution Width 14.3 % (12.1-15.1); White Blood Count 6.1 10^3/uL (4.0-10.0)
[2021-10-10 05:15] LABS: Alanine Aminotransferase 16 U/L (0-33); Albumin Level 3.6 g/dL (3.5-5.2); Alkaline Phosphatase 85 IU/L (35-105); Anion Gap 14.9 (5-19); Aspartate Amino Transferase 14 U/L (0-32); Blood Urea Nitrogen 11 mg/dL (6-20); Calcium 9.3 mg/dL (8.5-10.5); Carbon Dioxide 22 mmol/L (22-29); Chloride 111 mmol/L (98-107); Chol HDL Ratio 4.44 mg/dL (0.0-4.40); Cholesterol 213 mg/dL (0-200); Globulin 2.7 g/dL (1.3-4.6); Glomerular Filtration Rate 103.8 mL/min (90-130); Glucose 92 mg/dL (65-115); HDL Cholesterol 48 mg/dL (60-100); LDL Cholesterol Calculated 143 mg/dL (50-129); LDL HDL Ratio 2.98 RATIO (0.00-3.22); Osmolality Calculated 297 mOsm/kg (285-295); Potassium 3.9 mmol/L (3.5-5.1); Sodium 144 mmol/L (136-145); Total Bilirubin 0.6 mg/dL (0.15-1.2); Total Protein 6.3 g/dL (6.6-8.7); Triglycerides 109 mg/dL (0-150)
[2021-10-10 05:35] LABS: Estmated Average Glucose 100; Hemoglobin A1C 5.1 % (4.0-6.0)
--- NOTE | 2021-10-10 06:00 | USCV_ITS ---
Jessica Miller Age: 56 Gender: F : 1965 Exam Date: 10/10/2021 08:42 Ordering Phys: Teo Smith MD Technologist: Huey Rudd [place] [facility] [place]: tia BP: 170 / 87 HR: 68 Rhythm: Sinus Technical Quality: Adequate MEASUREMENTS (Male / Female) Normal Values 2D ECHO LV Diastolic Diameter PLAX 3.3 cm 4.2 - 5.9 / 3.9 - 5.3 cm LV Systolic Diameter PLAX 2.3 cm IVS Diastolic Thickness 1.0 cm 0.6 - 1.0 / 0.6 - 0.9 cm IVS Systolic Thickness 1.4 cm LVPW Diastolic Thickness 1.1 cm 0.6 - 1.0 / 0.6 - 0.9 cm LVPW Systolic Thickness 1.2 cm LVOT Diameter 2.0 cm LV Ejection Fraction 2D Teich 58.4 % LV Ejection Fraction MOD 2C 61.0 % LV Ejection Fraction 2C AL 60.9 % LA Diameter 3.2 cm Aorta at Sinotubular Diameter 2.1 cm M-MODE Aortic Annulus Diameter 2.6 cm LA Ao Ratio MM 1.4 MV E Point Septal Separation 1.0 cm DOPPLER AV Peak Velocity 159.0 cm/s LVOT Peak Velocity 98.0 cm/s AV Area Cont Eq vti 2.2 cm squared AV Area Cont Eq pk 1.9 cm squared MV Area PHT 5.0 cm squared Mitral E to A Ratio 1.0 MV E' Velocity 54.0 cm/s Mitral E to MV E' Ratio 8.8 Mitral E to LV E' Lateral Ratio 9.4 Mitral E to LV E' Septal Ratio 8.3 TR Peak Velocity 171.0 cm/s TR Peak Gradient 11.7 mmHg TV Peak E Velocity 107.0 cm/s Right Atrial Pressure 3.0 mmHg Pulmonary Artery Systolic Pressu 14.7 mmHg PV Peak Velocity 90.0 cm/s FINDINGS Left Ventricle Normal left ventricular size, systolic function and wall thickness, with no regional wall motion abnormalities. Grade I/IV diastolic dysfunction (abnormal relaxation filling pattern), normal to mildly elevated filling pressures. Left ventricular ejection fraction is estimated at 60 %. Right Ventricle Normal right ventricular size and systolic function. Normal right ventricular systolic pressure. Right Atrium The right atrium is normal in size. Left Atrium The left atrium is normal in size. Mitral Valve Structurally normal mitral valve. Mild-moderate mitral valve regurgitation. Aortic Valve Structurally normal aortic valve without significant sclerosis or stenosis. There is no aortic regurgitation. Tricuspid Valve Structurally normal tricuspid valve. Trace tricuspid valve regurgitation. Pulmonic Valve Pulmonic valve not well visualized. Pericardium Normal pericardium without effusion. Aorta Normal ascending aorta dimension. CONCLUSIONS Normal left ventricular size, systolic function and wall thickness, with no regional wall motion abnormalities. Grade I/IV diastolic dysfunction (abnormal relaxation filling pattern), normal to mildly elevated filling pressures. Left ventricular ejection fraction is estimated at 60 %. Structurally normal mitral valve. Mild-moderate mitral valve regurgitation. Dr. Rodney Aldana MD (Electronically Signed) Final Date: 10 Oct 2021 16:41 S
[2021-10-10 07:24] VITALS: BP 178/100; PULSE 65; RESP 17; TEMP 36.8; O2SAT 99
[2021-10-10] MEDS: aspirin 81 mg EC Tablet 162 MG PO (07:51)
[2021-10-10] MEDS: losartan 50 mg Tablet PO (07:51)
[2021-10-10] MEDS: metoprolol tartrate 25 mg Tablet PO (07:52)
--- NOTE | 2021-10-10 10:55 | P.DS_ITS ---
Discharge Providers Date of Admission: 10/09/21 13:44 Date of Discharge: October 10, 2021 Attending Provider at Admission: Teo Smith Attending Provider at Discharge: Teo Smith Primary Care Provider: RAHEEM Anguiano Diagnoses at Discharge Discharge Diagnosis (1) Hypertensive urgency: Status: Acute (2) Facial droop: Status: Acute (3) Leg numbness: Status: Acute (4) Chest tightness: Status: Acute (5) Uncontrolled hypertension: Status: Acute (6) Obesity: Status: Acute (7) Cholelithiasis: Status: Acute (8) DJD (degenerative joint disease): Status: Acute Qualifiers: Osteoarthritis location: spine Spinal region: lumbar Spinal osteoarthritis complication: with radiculopathy Qualified Code(s): 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 She had at the time also noticed some word finding difficulty, although she did not think much of it she states had had some milder symptoms of it in the past.? This morning she again noticed was having facial droop due to which her [id number] who is a nurse encouraged her to go to be evaluated in ER.? In ER facial droop was reported to been between 7-11 AM, then spontaneously resolved.? On the way to ER she reports she was having some numbness in the left hand, as well as some numbness in the left buttock, down to left foot.? She does, however, report that she is history of issues with degenerative disease in her neck, and has had numbness in her left upper extremity before, as well as deals with sciatica.? Head CT in ER revealed moderate generalized chronic atrophy, no acute intracranial abnormality.? CTA head and neck without large vessel stenosis or occlusion. Noted hypertensive in ER, blood pressure up into 200s systolic, and the 120s diastolic.? Her headache has been better, however, with mild residual symptoms. She reports with her headache she also was having some mild tightness in her chest on and off. She states she is supposed to, but has not really been monitoring her blood pressures at home. She had changed her diet and cut out fat from her diet due to gallstones for which she follows with her primary provider, and is trying to lose weight. She states she had previously had prediabetes but has gotten controlled with diet. Had a tick bite 7 months ago, none since.? Denies any rash, fevers.? Occasional mild chills. Hospital Course Hospital Course In addition to continue losartan she received amlodipine and later also started on metoprolol, without recurrence of headache, facial droop. Blood pressure is gradually are improving, however, will need further optimization. Discussed with her. She is continued on losartan, metoprolol, and also started on amlodipine. She is instructed to measure blood pressures and bring log to her primary provider to continue optimization. As discussed with her she is also going to continue attempts to lose weight. She is continued on aspirin 81 mg, atorvastatin 40 mg. Her A1c was 5.3. Troponin EKG series were not suggestive of acute CA. Chest tightness preadmission was likely secondary to hypertensive urgency suspect also similarly headache and focal neurologic deficits/TIA as well. She is referred for additional assessment by MRI and follow-up with neur ology. She experienced numbness in left arm, transient before admission, as well as left lower extremity numbness, which are likely related to degenerative disease of the spine, also as noted on CT angiogram of the neck, and with prior history of lumbosacral radiculopathy. She has ambulated in her room, has no symptoms of numbness or weakness. Discussed with her continue to follow-up with primary provider. She will also continue follow-up regarding cholelithiasis with occasional episodes of nausea, right upper quadrant discomfort postprandially. Physical Exam Narrative: Reports she is doing well today. Denies any recurrence of symptoms. Feels ready to return home. Const: COMMON NORMALS: alert GENERAL APPEARANCE: cooperative ORIENTATION/CONSCIOUSNESS: Yes awake HENMT: COMMON NORMALS: normocephalic, EAC's normal, Normal external nose present and moist oral mucous membranes HEAD & SCALP: normocephalic NOSE: Normal external nose present EXTERNAL AUDITORY CANAL: EAC's normal Neck/C-Spine: COMMON NORMALS: no meningeal signs Chest: CHEST: Yes Symmetrical chest wall rise Resp: COMMON NORMALS: clear to auscultation bilaterally AUSCULTATION: clear to auscultation bilaterally Cardio: COMMON NORMALS: regular rate, regular rhythm and No murmurs present (Cardio) RATE: regular rate RHYTHM: regular rhythm GI: COMMON NORMALS: Normal to inspection, nondistended, normoactive bowel sounds present, Soft to palpation and non-tender PALPATION: Yes Soft to palpation Extremity: COMMON NORMALS: no pedal edema OTHER: Mild posterior L thigh pain on straight leg raise Neuro: COMMON NORMALS: moves all extremities SENSORIUM/ORIENTATION: Yes alert MENINGEAL SIGNS: Yes no meningeal signs COORDINATION/BALANCE: [id number] test normal and nplm-ns-dysp test normal SPEECH: speech normal MOTOR EXAM: 5/5 motor strength present throughout and Pronator motor function not present COORDINATION: [id number]-[id number] test normal and [id number]-[id number] test normal OTHER: Facial droop resolved. Able to rise right eyebrow/wrinkle forehead. Follows directions well. No issues with tracking. Visual hurst full to confrontation. Psych: COMMON NORMALS: mental status grossly normal Skin: COMMON NORMALS: no wounds RASHES: no rashes Discharge Data Studies Completed and Pending Completed Studies During Hospitalization Category Date Time Status CT head wo con* [id number] Urgent Cat Scan 10/09/21 11:30 Completed CTA head neck [CT angio headneck* [id number]] Urgent Cat Scan 10/09/21 11:30 Completed XR chest 1V portable [id number] Urgent Exams 10/09/21 11:41 Completed Pending at discharge Category Date Time Status CV. echo complete* [id number] Routine Ultrasound 10/10/21 06:00 Taken Radiology Impressions Head CT 10/09/21 11:30 IMPRESSION: 1. No acute intracranial abnormality. 2. Moderate generalized chronic atrophy. Head/Neck CTA 10/09/21 11:30 IMPRESSION: No large vessel stenosis or occlusion. IMPRESSION: No no occlusion or significant stenosis in the neck. COMMENTS: Consistent with the [employer]'s Incidental Findings Committee white paper (J Am Simon Radiol 2015): In patients aged 35 years and older with an incidental thyroid nodule equal to or greater than 1.[address], MRI or extrathyroidal US, further evaluation with dedicated thyroid US is recommended for patients with normal life expectancy and without comorbidities. For smaller nodules without suspicious features, no further evaluation or follow up is recommended. REFERENCES: NASCET CRITERIA. The degree of internal carotid artery stenosis is based on NASCET criteria. Normal is no stenosis. Mild is less than 50% stenosis. Moderate is 50-69% stenosis. Severe is 70% to 99% stenosis. Total occlusion is no detectable patent lumen. Chest X-Ray 10/09/21 11:41 IMPRESSION: No acute findings. Laboratory Results WBC 6.1 10^3/uL (4.0-10.0) 10/10/21 03:46 RBC 4.63 10^6/uL (4.1-5.3) 10/10/21 03:46 Hgb 12.9 g/dL (11.5-15.3) 10/10/21 03:46 Hct 40.9 % (37.0-47.0) 10/10/21 03:46 MCV 88.3 fl (81-99) 10/10/21 03:46 MCH 27.9 pg (28.0-34.0) L 10/10/21 03:46 MCHC 31.5 g/dL (30.0-36.0) 10/10/21 03:46 RDW 14.3 % (12.1-15.1) 10/10/21 03:46 Plt Count 217 10^3/cmm (130-400) 10/10/21 03:46 MPV 11.2 fL (7.4-10.4) H 10/10/21 03:46 Neut % (Auto) 49.2 % 10/10/21 03:46 Lymph % (Auto) 37.0 % 10/10/21 03:46 Wilson % (Auto) 9.5 % 10/10/21 03:46 Eos % (Auto) 2.8 % 10/10/21 03:46 Baso % (Auto) 1.0 % 10/10/21 03:46 Neut # (Auto) 2.99 10^3/uL (1.8-7.7) 10/10/21 03:46 Lymph # (Auto) 2.3 10^3/uL (0.8-4.8) 10/10/21 03:46 Wilson # (Auto) 0.6 10^3/uL (0.2-0.9) 10/10/21 03:46 Eos # (Auto) 0.2 10^3/uL (0.0-0.8) 10/10/21 03:46 Baso # (Auto) 0.1 10^3/uL (0.0-0.1) 10/10/21 03:46 Nucleated RBC % (auto) 0 % 10/10/21 03:46 Nucleated RBCs # 0.0 /100WBC 10/10/21 03:46 D-Dimer 0.31 ug/mIFEU (0-0.59) 10/09/21 12:40 Sodium 144 mmol/L (136-145) 10/10/21 03:46 Potassium 3.9 mmol/L (3.5-5.1) 10/10/21 03:46 Chloride 111 mmol/L (98-107) H 10/10/21 03:46 Carbon Dioxide 22 mmol/L (22-29) 10/10/21 03:46 Anion Gap 14.9 (5-19) 10/10/21 03:46 BUN 11 mg/dL (6-20) 10/10/21 03:46 Creatinine 0.6 mg/dL (0.5-0.9) 10/10/21 03:46 GFR Calculation 103.8 mL/min (90-130) 10/10/21 03:46 Glucose 92 mg/dL (65-115) 10/10/21 03:46 Estimat Average Glucose 100 10/10/21 03:46 Hemoglobin A1c 5.1 % (4.0-6.0) 10/10/21 03:46 Calculated Osmolality 297 mOsm/kg (285-295) H 10/10/21 03:46 Calcium 9.3 mg/dL (8.5-10.5) 10/10/21 03:46 Total Bilirubin 0.6 mg/dL (0.15-1.2) 10/10/21 03:46 Direct Bilirubin 0.20 mg/dL (0.00-0.30) 10/09/21 11:55 AST 14 U/L (0-32) 10/10/21 03:46 ALT 16 U/L (0-33) 10/10/21 03:46 Alkaline Phosphatase 85 IU/L (35-105) 10/10/21 03:46 Troponin T Baseline 8 ng/L (0-10) 10/09/21 11:55 Troponin T 120 Minute 6.00 ng/L (0-10) 10/09/21 13:25 Delta Troponin T -2.0 ABS# (0-10) L 10/09/21 13:25 Total Protein 6.3 g/dL (6.6-8.7) L 10/10/21 03:46 Albumin 3.6 g/dL (3.5-5.2) 10/10/21 03:46 Globulin 2.7 g/dL (1.3-4.6) 10/10/21 03:46 Triglycerides 109 mg/dL (0-150) 10/10/21 03:46 Cholesterol 213 mg/dL (0-200) H 10/10/21 03:46 LDL Cholesterol, Calc 143 mg/dL (50-129) H 10/10/21 03:46 HDL Cholesterol 48 mg/dL (60-100) L 10/10/21 03:46 LDL/HDL Ratio 2.98 RATIO (0.00-3.22) 10/10/21 03:46 Cholesterol/HDL Ratio 4.44 mg/dL (0.0-4.40) H 10/10/21 03:46 Vitals Last Vital Signs Temp 98.2 F 10/10/21 07:24 Pulse 65 10/10/21 07:24 Resp 17 10/10/21 07:24 BP 178/100 10/10/21 07:24 Pulse Ox 99 10/10/21 07:24 Discharge Plan Discharge Patient Disposition: Home Condition: Stable Prescriptions: New aspirin 81 mg Tablet,Delayed Release (Dr/Ec) 81 mg PO DAILY Qty: 90 0RF atorvastatin 40 mg Tablet 40 mg PO BEDTIME Qty: 90 0RF amlodipine 5 mg tablet 5 mg PO DAILY Qty: 90 0RF metoprolol tartrate 25 mg Tablet 25 mg PO BID@0900,2100 Qty: 180 0RF Continued dicyclomine 10 mg Capsule 10 mg PO TID PRN (Reason: stomach pain) 0RF Excedrin Migraine 250-250-65 mg Tablet 1 tab PO DAILY PRN (Reason: Migraine Headache) 0RF losartan 50 mg tablet 50 mg PO DAILY 0RF Rx Instructions: must be seen for future refills Discharge Orders: Discharge Order (Routine); Ordered 10/10/21 Ordered By: Teo Smith Other Ambulatory Orders: MR yesenia wo con* [id number] (Routine) Timeframe: 3 Days Facility: [facility] - Location: [facility] [place] [facility] Ordered By: Teo Smith Referrals: Latoya Haywood MD [Physician] - 1 week (Please call Dr Haywood's Office at [phone] to schedule a follow up appointment or if you have any questions or comments. Thank you. *MENTION THIS NOTE WHEN YOU CALL: TIA) Gregg Sullivan FNP [Primary Care Provider] - 4-7 days (Please call Gregg Sulilvan's Office at [phone] to schedule a follow up appointment or if you have any questions or concerns. Thank you.) Discharge Diet: Cardiac Patient Instructions: Aspirin (By mouth), Amlodipine (By mouth), Atorvastatin (By mouth), Transient Ischemic Attack (GEN), Hypertension (GEN) Activity Restrictions/Additional Instructions: Please monitor your blood pressure at least 3 times daily. Write down values to bring to her appointment. Due to uncontrolled blood pressure you are started additionally on amlodipine. Continue losartan, metoprolol. Continue cardiac diet. Follow-up for MRI and with appointment with neurology for further assessment. Continue to work with your primary doctor to reduce risk factors of cardiovascular disease. Continue to work with them for optimization of control of blood pressure. Weight loss. Follow-up with your primary doctor regarding chronic degenerative changes in cervical spine. Continue follow-up regarding gallstones. Discharge Attestations Time Spent in Discharge Care*: greater than 30 min Quality Metrics Clinical Quality Measures [ Cerebrovascular Accident { Contraindication to Antithrombotic: None; antithrombotic prescribed; Contraindication to Anticoagulation: Overlap treatm ent not indicated; Contraindication to Statin: None; Statin prescribed;}] Coding Level of Care Code Acute [facility] note Diagnoses Hypertensive urgency I16.0 Facial droop R29.810 Leg numbness R20.0 Chest tightness R07.89 Uncontrolled hypertension I10 Obesity E66.9 Cholelithiasis K80.20 DJD (degenerative joint disease) M47.26 Osteoarthritis location: spine Spinal region: lumbar Spinal osteoarthritis complication: with radiculopathy
== END 2021-10-10 12:20 | disposition home or self-care (01) ==
LOC: ER 11:47 → MEDSURG 14:01
PROVIDERS: Admitting Provider Internal Medicine; Emergency Provider Emergency Medicine; PCP Nurse Practitioner; Visit Provider Internal Medicine
DX: I16.0 Hypertensive urgency (principal); R29.810 Facial weakness; R20.0 Anesthesia of skin; R07.89 Other chest pain; I10 Essential (primary) hypertension; E66.9 Obesity, unspecified; Z68.36 Body mass index [BMI] 36.0-36.9, adult; K80.20 Calculus of gallbladder without cholecystitis without obstruction; M47.26 Other spondylosis with radiculopathy, lumbar region; Z79.82 Long term (current) use of aspirin; M19.90 Unspecified osteoarthritis, unspecified site; M06.9 Rheumatoid arthritis, unspecified; Z82.49 Family history of ischemic heart disease and other diseases of the circulatory system; Z83.3 Family history of diabetes mellitus; Z87.891 Personal history of nicotine dependence; Z86.73 Personal history of transient ischemic attack (TIA), and cerebral infarction without residual deficits
CPT/HCPCS: 36415; 70450; 70496; 70498; 71045; 80048; 80053; 80061; 80076; 83036; 84484; 85025; 85378; 92523; 92610; 93005; 93306; 96361; 96374; 99285; G0378; J2765; J7030; Q9967

== ENCOUNTER → 2021-11-18 08:50 | Outpatient (BNVA) | payer MEDICAID, SELFPAY | PROVIDERS: PCP Nurse Practitioner; Referring Provider Internal Medicine; Visit Provider Specialist | DX: Z86.73 Personal history of transient ischemic attack (TIA), and cerebral infarction without residual deficits (principal); I10 Essential (primary) hypertension; M54.2 Cervicalgia | CPT/HCPCS: 99204 ==

== ENCOUNTER 2022-03-21 15:32 | Outpatient (CLI) | payer MEDICAID, SELFPAY ==
--- NOTE | 2022-03-21 15:55 | MR_ITS ---
WS: [id number] MRI LEFT SHOULDER NONCONTRAST TECHNIQUE: Sagittal T2, coronal T1, T2 and proton density imaging. Axial gradient PDE imaging. CLINICAL INFORMATION: PAIN IN LEFT SHOULDER COMPARISON: None. FINDINGS: Moderate degenerative arthritis AC joint with mild downsloping acromion. Subacromial spurring. Imping ement on the distal supraspinatus. Mild tendinopathy in the distal supraspinatus. Normal infraspinatu s. Normal teres minor. Normal subscapularis. No high-grade rotator cuff tear. Normal biceps tendon in the bicipital groove. Degenerative fraying of the glenoid labrum. Suggestion of a tiny SLAP tear of the anterosuperior glenoid labrum. Normal bone marrow signal in the humerus an d glenoid. Intra-articular biceps tendon is normal. MR/MR shoulder LT wo con* [id number] IMPRESSION: 1. Moderate degenerative arthritis AC joint with mild downsloping acromion wit h subacromial spurring. 2. Tendinopathy in the distal supraspinatus with mild chronic thinning. 3. No acute appearing rotator cuff tear. 4. Normal biceps tendon in the bicipital groove. Normal intra-articular biceps tendon. 5. Suggestion of a small SLAP tear at the anterior superior glenoid labrum and biceps labral anchor. Recommend correlation for instability. This can be furth er evaluated with arthrogram if indicated.
== END 2022-03-21 15:33 | disposition home or self-care (01) ==
LOC: RAD 15:33
PROVIDERS: PCP Nurse Practitioner; Visit Provider Nurse Practitioner
DX: M19.012 Primary osteoarthritis, left shoulder (principal); M13.812 Other specified arthritis, left shoulder; R20.0 Anesthesia of skin
CPT/HCPCS: 73221; 95908; 95909

== ENCOUNTER → 2022-04-18 08:40 | Outpatient (BNVA) | payer MEDICAID, SELFPAY | PROVIDERS: PCP Nurse Practitioner; Referring Provider Nurse Practitioner; Visit Provider Student in an Organized Health Care Education/Training Program | DX: M75.42 Impingement syndrome of left shoulder (principal); M75.82 Other shoulder lesions, left shoulder | CPT/HCPCS: 73030; 99204 ==

== ENCOUNTER → 2023-04-06 13:19 | Outpatient (BNVA) | payer MEDICAID, SELFPAY | PROVIDERS: PCP Nurse Practitioner; Visit Provider Internal Medicine | DX: R07.9 Chest pain, unspecified (principal); R06.02 Shortness of breath; I34.0 Nonrheumatic mitral (valve) insufficiency; Z86.73 Personal history of transient ischemic attack (TIA), and cerebral infarction without residual deficits; I10 Essential (primary) hypertension | CPT/HCPCS: 93005; 99204 ==